=== PATIENT | female | born 1945 | race Caucasian/White ===

== ENCOUNTER 2020-06-20 14:31 | Emergency (ER) | payer MEDICARE ==
[~2020-06-20] VITALS: Ht 170.1 cm; Wt 86.2 kg
[2020-06-20 14:52] VITALS: BP 159/92
--- NOTE | 2020-06-20 15:22 | ED General ---
General Chief Complaint: General Problems/Pain Stated Complaint: SHAKY,DIARRHEA Nursing Triage Note: AMB TO ROOM REPORTS HAS JUST MOVED HERE HAS FELT WEAK FOR 5 DAYS IS OUT OF GABAPENTIN,MIRTAZAPINE PAROXETINE. HAS BEEN EATING TOAST. DOES NOT HAVE A PCP YET. Nursing Sepsis Screen: No Definite Risk Source of Information: Patient Exam Limitations: No Limitations History of Present Illness Date Seen by Provider: Jun 20, 2020 Time Seen by Provider: 15:10 Initial Comments This is a well-appearing 74-year-old female who presents to the ER with complaints of insomnia and tingling in her arms. States she ran out of her gabapentin, mirtazapine, and Paxil a few weeks ago and has never been without these medications. She believes that this is the cause of her symptoms and requests that I help her get her medications. She states she just moved here 5 weeks ago and is working on establishing with a PCP here. She denies fevers, chills, cough, shortness of breath, nausea, vomiting, diarrhea, abdominal pain. Allergies and Home Medications Patient Home Medication List Home Medication List Reviewed: Yes Review of Systems Review of Systems Constitutional: no symptoms reported EENTM: no symptoms reported Respiratory: no symptoms reported Cardiovascular: no symptoms reported Gastrointestinal: diarrhea Genitourinary: no symptoms reported Musculoskeletal: no symptoms reported Skin: no symptoms reported Psychiatric/Neurological: Other (insomnia ) Hematologic/Lymphatic: No Symptoms Reported Immunological/Allergic: no symptoms reported Past Mnfycdc-Uawtgo-Cyxteq Hx Patient Social History Recent Infectious Disease Expo: No Physical Exam Vital Signs Vital Signs - First Documented 06/20/20 14:52 Temp 36.4 Pulse 78 Resp 18 B/P (MAP) 159/92 (114) Pulse Ox 95 Capillary Refill : Less Than 3 Seconds Height, Weight, BMI Height: '" Weight: lbs. oz. kg; 29.00 BMI Method: General Appearance: No Apparent Distress, WD/WN Eyes: Bilateral Eye Normal Inspection, Bilateral Eye PERRL, Bilateral Eye EOMI HEENT: PERRL/EOMI, TMs Normal, Normal ENT Inspection, Pharynx Normal, Moist Mucous Membranes Neck: Full Range of Motion, Normal Inspection Respiratory: Chest Non Tender, Lungs Clear, Normal Breath Sounds, No Accessory Muscle Use Cardiovascular: Regular Rate, Rhythm, No Murmur, Normal Peripheral Pulses Gastrointestinal: Normal Bowel Sounds, Non Tender, Soft Extremity: Normal Capillary Refill, Normal Inspection, Normal Range of Motion Neurologic/Psychiatric: Alert, Oriented x3, No Motor/Sensory Deficits, Normal Mood/Affect Skin: Normal Color, Warm/Dry Progress/Results/Core Measures Suspected Sepsis Recent Fever Within 48 Hours: No Infection Criteria Present: None New/Unexplained Altered Menta: No Sepsis Screen: No Definite Risk SIRS Temperature: Pulse: 78 Respiratory Rate: 18 Blood Pressure 159 /92 Mean: 114 Results/Orders Vital Signs/I&O 06/20/20 14:52 Temp 36.4 Pulse 78 Resp 18 B/P (MAP) 159/92 (114) Pulse Ox 95 Capillary Refill : Less Than 3 Seconds Blood Pressure Mean: 114 Progress Note : Progress Note Pt. examined and in no acute distress. Offered to to basic workup and UA. Patient refused stating she just needs help getting her medications. Called [facility] to check on prescriptions. States patient has Mirtazapine that is pending pepper picker. states that they will go ahead and fill her Gabapentin and they are working with [facility] in [place] to get her Paxil filled. Updated patient. Verbalized gratitude and states she is ready to discharge. Departure Impression Primary Impression: Medication not available Disposition: HOME, SELF-CARE Condition: Stable/Unchanged Departure-Patient Inst. Decision time for Depature: 15:21 Referrals: NO,LOCAL PHYSICIAN (PCP/Family) Primary Care Physician Patient Instructions: NO INSTRUCTIONS GIVEN Add. Discharge Instructions: Plan: 1. Discharge home. 2. plant superintendent your prescriptions from [facility]. 3. Return for any new or concerning symptoms. All discharge instructions reviewed with patient and/or family. Voiced unders tanding. WANDA BARRIOS COMPUTER REPAIRER Jun 20, 2020 15:22
== END 2020-06-20 15:29 | disposition home or self-care (01) ==
LOC: ER 14:34
DX: G47.00 Insomnia, unspecified (principal)
CPT/HCPCS: 99281

== ENCOUNTER → 2020-07-07 | Outpatient (CLI) | payer MEDICARE, MEDICAID | LOC: CARD 12:13 | PROVIDERS: ATTEND Nurse Practitioner Family | DX: I51.7 Cardiomegaly (principal); I35.8 Other nonrheumatic aortic valve disorders; I25.10 Atherosclerotic heart disease of native coronary artery without angina pectoris | CPT/HCPCS: 93005; 93306 ==

== ENCOUNTER 2021-01-25 12:20 | Outpatient (RCR) | payer MEDICARE, MEDICAID ==
[2021-01-14 11:50] VITALS: BP 150/63
--- NOTE | 2021-01-14 12:18 | Diagnostic Imaging Report ---
INDICATION: COUGH LEUKOCYTOSIS. TECHNIQUE: Two-view chest at 11:39 a.m. CORRELATION STUDY: None. FINDINGS: Poststernotomy and coronary bypass changes. Heart size is enlarged. Vasculature is mildly prominent. Mildly prominent interstitial markings. No consolidating infiltrate or effusion. On the lateral projection, there is a nodular density projecting over the superior thoracic spine. This area measures 14 mm. IMPRESSION: 1. Poststernotomy changes. Borderline heart size and vasculature. 2. Question nodule in the posterior upper lung superimposed on the thoracic spine, may simply reflect summation shadows. Pulmonary nodule should be excluded. Either short-term follow-up repeat two-view chest imaging or correlation with prior studies, if available. Alternatively, CT imaging of the chest would be recommended. Dictated by: Dictated on workstation # [id number]
[2021-01-14] MEDS: IRON SUCROSE 200 MG/10 ML (VENOFER) VIAL IV SCH (12:50)
[2021-01-17] MEDS: IRON SUCROSE 200 MG/10 ML (VENOFER) VIAL IV SCH (12:53)
[2021-01-17 12:54] VITALS: BP 152/55
[2021-01-19 12:55] VITALS: BP 150/70
[2021-01-19] MEDS: IRON SUCROSE 200 MG/10 ML (VENOFER) VIAL IV SCH (13:32)
[2021-01-21 12:55] VITALS: BP 155/52
[2021-01-21] MEDS: IRON SUCROSE 200 MG/10 ML (VENOFER) VIAL IV SCH (13:10)
[2021-01-25] MEDS ORDERED: IRON SUCROSE 200 MG/10 ML (VENOFER) VIAL IV SCH (12:31)
[2021-01-25 12:40] VITALS: BP 138/51
== END 2021-04-14 | disposition home or self-care (01) ==
LOC: SDC 12:20
PROVIDERS: ATTEND Nurse Practitioner Family
DX: D50.9 Iron deficiency anemia, unspecified (principal); D72.829 Elevated white blood cell count, unspecified; Z98.890 Other specified postprocedural states
CPT/HCPCS: 71046; 96365

== ENCOUNTER → 2021-05-10 | Outpatient (CLI) | payer MEDICARE, MEDICAID ==
[~2021-05-10] MED LIST: CATHETER FLUSH 10 ML SYR IV PRN; HOLD METFORMIN - RECEIVED CONTRAST 20 ML VIAL IV SCH; IOHEXOL 350 MG/ML 100 ML (OMNIPAQUE 350) VIAL IV ONE; NS 100 ML (IVPB) BAG IV ONE
[2021-05-10 12:25] LABS: CREATININE SERUM 0.98 MG/DL (0.60-1.30)
--- NOTE | 2021-05-10 13:33 | Diagnostic Imaging Report ---
EXAMINATION: CT chest with intravenous contrast, CT abdomen and pelvis without and with intravenous contrast. TECHNIQUE: Pre and post intravenous contrast axial imaging of the abdomen and pelvis and post contrast axial imaging of the chest were performed. All CT scans use one or more of the following dose optimizing techniques: automated exposure control, MA and/or KvP adjustment based on patient size and exam type or iterative reconstruction. HISTORY: Anemia, right upper quadrant pain. COMPARISON: None available. FINDINGS: Thyroid: The thyroid is normal. Mediastinum: Heart size is normal without significant pericardial effusion. Calcifications of the aorta and coronary vessels. Thoracic aorta is normal in caliber. No suspicious lymphadenopathy. Lungs and airways: The lungs are clear without consolidation, pleural effusion, or pneumothorax. There is a 0.6 x 0.4 cm left lower lobe pulmonary nodule. There is scarring within the lingula. Additional smaller 0.4 cm right lower lobe subpleural pulmonary nodule. The airways are normal. Solid organs: There is a mildly nodular contour of the liver. No suspicious hepatic lesion. The gallbladder is surgically absent. There is no biliary ductal dilation. Pancreas is normal. Spleen is normal. Adrenal glands are normal. The kidneys are unremarkable without hydronephrosis. There are subcentimeter left renal cortical hypodense lesions which are too small for accurate characterization. Bowel: The stomach and small bowel are normal without obstruction. The colon is unremarkable. No findings of acute appendicitis. Peritoneum: There is no intraperitoneal free fluid or free air. No suspicious lymphadenopathy. Vasculature: Calcification of the aorta without aneurysm. Musculoskeletal: Degenerative changes of the spine without suspicious osseous lesion or compression fracture. There are surgical changes from median sternotomy and CABG. There is mild skin thickening seen along the anterior abdominal soft tissues. Pelvis: The uterus is surgically absent. No adnexal mass. The urinary bladder is normal. IMPRESSION: 1. No acute abnormality in the abdomen or pelvis. 2. Nodular morphology of the liver which can be seen with cirrhosis in the appropriate clinical setting. 3. Pulmonary nodules measuring up to 0.5 cm average in the left lower lobe. Consider follow-up CT of the chest in 6 to 12 months. Dictated by: Dictated on workstation # [id number]
== END ==
LOC: RAD 12:45
PROVIDERS: ATTEND Nurse Practitioner Family
DX: D50.9 Iron deficiency anemia, unspecified (principal); R91.8 Other nonspecific abnormal finding of lung field; R10.11 Right upper quadrant pain; Z87.891 Personal history of nicotine dependence
CPT/HCPCS: 36415; 71260; 74178; 82565; 84520

== ENCOUNTER 2021-09-09 12:44 | Inpatient (IN) | payer MEDICARE, MEDICAID ==
[~2021-09-09] VITALS: Ht 170.2 cm; Wt 90.8 kg
[2021-09-09 13:06] LABS: BASOPHILS # (AUTO) 0.1 10^3/uL (0.0-0.1); BASOPHILS % (AUTO) 1 % (0-10); EOSINOPHILS # (AUTO) 0.2 10^3/uL (0.0-0.3); EOSINOPHILS % (AUTO) 2 % (0-10); HEMATOCRIT 34 % (35-52); HEMOGLOBIN 11.4 g/dL (11.5-16.0); LYMPHOCYTES # (AUTO) 2.2 10^3/uL (1.0-4.0); LYMPHOCYTES % (AUTO) 20 % (12-44); MEAN CORPUSCULAR HEMOGLOBIN 31 pg (25-34); MEAN CORPUSCULAR HGB CONC 33 g/dL (32-36); MEAN CORPUSCULAR VOLUME 93 fL (80-99); MONOCYTES # (AUTO) 1.1 10^3/uL (0.0-1.0); MONOCYTES % (AUTO) 10 % (0-12); NEUTROPHILS # (AUTO) 7.2 10^3/uL (1.8-7.8); NEUTROPHILS % (AUTO) 67 % (42-75); PLATELET COUNT 309 10^3/uL (130-400); WHITE BLOOD COUNT 10.8 10^3/uL (4.3-11.0)
[2021-09-09 13:18] LABS: ALBUMIN 3.5 GM/DL (3.2-4.5); POTASSIUM 3.6 MMOL/L (3.6-5.0)
[2021-09-09 13:19] LABS: CALCIUM 9.5 MG/DL (8.5-10.1)
[2021-09-09 13:20] LABS: TOTAL PROTEIN 7.2 GM/DL (6.4-8.2)
--- NOTE | 2021-09-09 13:20 | ED GI ---
General Chief Complaint: Abdominal/GI Problems Stated Complaint: DIARRHEA Nursing Triage Note: PT AMB TO RM 9 WITH COMPLAINT OF DIARRHEA X1 WEEK. STATES HAS HAD INTERMITTENT BRIGHT RED BLOOD. WENT TO PCP AND PRESCRIBED LOMOTIL. INSTRUCTED TO COME TO ER BY PCP. Source of Information: Patient Exam Limitations: No Limitations History of Present Illness Date Seen by Provider: September 09, 2021 Time Seen by Provider: 12:52 Initial Comments Patient to the ER by private conveyance from home with chief complaint of diarrhea for 7 days with some small amounts of bright red blood in it last day or so. She is having some occasional nausea but no vomiting. No fevers or chills. She says she had a colonoscopy so many years ago she does not member a thing about it. She does not have a history of diverticulitis. No known sick c ontacts, recent travel outside the [facility], drinking from unsafe water sources or camping. She has had her appendix out, gallbladder out and hysterectomy. Allergies and Home Medications Allergies Coded Allergies: No Known Drug Allergies (Unverified , 01/14/21) Patient Home Medication List Home Medication List Reviewed: Yes Review of Systems Review of Systems Constitutional: No chills, No diaphoresis, No fever; weakness EENTM: No Blurred Vision, No Double Vision Respiratory: Denies Cough, Denies Orthopnea, Denies Shortness of Air Cardiovascular: Denies Chest Pain, Denies Lightheadedness Gastrointestinal: Denies Abdomen Distended, Denies Abdominal Pain, Denies Constipated; Diarrhea; Denies Nausea; Poor Appetite; Denies Poor Fluid Intake, Denies Vomiting Genitourinary: Denies Burning, Denies Discharge Musculoskeletal: No back pain, No joint pain All Other Systems Reviewed Negative Unless Noted: Yes Past Naujvut-Zbpoao-Wlejxk Hx Patient Social History Tobacco Use?: Yes Tobacco type used: Cigarettes Smoking Status: Current Everyday Smoker Use of E-Cig and/or Vaping dev: No Substance use?: No Alcohol Use?: Yes Alcohol Frequency: Once in a while Pt feels they are or have been: No Past Medical History Surgeries: Yes Appendectomy, CABG, Gallbladder, Hysterectomy Cardiac: Yes Hypertension Genitourinary: No Musculoskeletal: Yes Chronic Back Pain Endocrine: Yes Diabetes, Insulin dep Psychosocial: Yes Depression Physical Exam Vital Signs Vital Signs - First Documented 09/09/21 12:53 Temp 36.0 Pulse 104 Resp 20 B/P (MAP) 160/75 (103) Pulse Ox 93 O2 Delivery Room Air Capillary Refill : Less Than 3 Seconds Height/Weight/BMI Height: '" Weight: lbs. oz. kg; 30.00 BMI Method: General Appearance: WD/WN, mild distress HEENT: PERRL/EOMI, pharynx normal Neck: full range of motion, supple, normal inspection Respiratory: lungs clear, normal breath sounds, no respiratory distress, no accessory muscle use Cardiovascular: normal peripheral pulses, regular rate, rhythm, tachycardia (104) Peripheral Pulses: 2+ Radial Pulses (R), 2+ Radial Pulses (L) Gastrointestinal: normal bowel sounds, non tender, soft Neurologic/Psychiatric: alert, normal mood/affect, oriented x 3 Skin: normal color, warm/dry Progress/Results/Core Measures Results/Orders Lab Results Laboratory Tests Test 09/09/21 12:59 09/09/21 16:49 Range/Units White Blood Count 10.8 4.3-11.0 10^3/uL Red Blood Count 3.71 L 3.80-5.11 10^6/uL Hemoglobin 11.4 L 11.5-16.0 g/dL Hematocrit 34 L 35-52 % Mean Corpuscular Volume 93 80-99 fL Mean Corpuscular Hemoglobin 31 25-34 pg Mean Corpuscular Hemoglobin Concent 33 32-36 g/dL Red Cell Distribution Width 12.8 10.0-14.5 % Platelet Count 309 130-400 10^3/uL Mean Platelet Volume 10.0 9.0-12.2 fL Immature Granulocyte % (Auto) 1 % Neutrophils (%) (Auto) 67 42-75 % Lymphocytes (%) (Auto) 20 12-44 % Monocytes (%) (Auto) 10 0-12 % Eosinophils (%) (Auto) 2 0-10 % Basophils (%) (Auto) 1 0-10 % Neutrophils # (Auto) 7.2 1.8-7.8 10^3/uL Lymphocytes # (Auto) 2.2 1.0-4.0 10^3/uL Monocytes # (Auto) 1.1 H 0.0-1.0 10^3/uL Eosinophils # (Auto) 0.2 0.0-0.3 10^3/uL Basophils # (Auto) 0.1 0.0-0.1 10^3/uL Immature Granulocyte # (Auto) 0.1 0.0-0.1 10^3/uL Sodium Level 138 135-145 MMOL/L Potassium Level 3.6 3.6-5.0 MMOL/L Chloride Level 104 98-107 MMOL/L Carbon Dioxide Level 21 21-32 MMOL/L Anion Gap 13 5-14 MMOL/L Blood Urea Nitrogen 10 7-18 MG/DL Creatinine 1.05 0.60-1.30 MG/DL Estimat Glomerular Filtration Rate 56 BUN/Creatinine Ratio 10 Glucose Level 153 H 70-105 MG/DL Calcium Level 9.5 8.5-10.1 MG/DL Corrected Calcium 9.9 8.5-10.1 MG/DL Total Bilirubin 0.3 0.1-1.0 MG/DL Aspartate Amino Transf (AST/SGOT) 34 5-34 U/L Alanine Aminotransferase (ALT/SGPT) 40 0-55 U/L Alkaline Phosphatase 133 40-136 U/L C-Reactive Protein High Sensitivity 4.81 H 0.00-0.50 MG/DL Total Protein 7.2 6.4-8.2 GM/DL Albumin 3.5 3.2-4.5 GM/DL Lipase 373 H 8-78 U/L Urine Color YELLOW Urine Clarity SL CLOUDY Urine pH 5.0 5-9 Urine Specific [place] 1.025 H 1.016-1.022 Urine Protein 2+ H NEGATIVE Urine Glucose (UA) 2+ H NEGATIVE Urine Ketones NEGATIVE NEGATIVE Urine Nitrite POSITIVE H NEGATIVE Urine Bilirubin NEGATIVE NEGATIVE Urine Urobilinogen 0.2 < = 1.0 MG/DL Urine Leukocyte Esterase NEGATIVE NEGATIVE Urine RBC (Auto) NEGATIVE NEGATIVE Urine RBC NONE /HPF Urine WBC 10-25 H /HPF Urine Squamous Epithelial Cells RARE /HPF Urine Crystals NONE /LPF Urine Bacteria LARGE H /HPF Urine Casts NONE /LPF Urine Mucus NEGATIVE /LPF Urine Culture Indicated YES My Orders Orders - KALE BROWN Ua Culture If Indicated (09/09/21 12:50) Cbc With Automated Diff (09/09/21 12:50) Comprehensive Metabolic Panel (09/09/21 12:50) Hs C Reactive Protein (09/09/21 12:50) Ct Abdomen/Pelvis Wo (09/09/21 13:38) Ed Iv/Invasive Line Start (09/09/21 13:38) Lactated Ringers (Lr 1000 Ml Iv Solution (09/09/21 13:45) Ondansetron Injection (Zofran Injectio (09/09/21 13:45) Hydrocodone/Apap 5/325 Tablet (Lortab 5 (09/09/21 13:45) Lipase (09/09/21 13:38) Ed Iv/Invasive Line Start (09/09/21 16:36) Ns Iv 1000 Ml (Sodium Chloride 0.9%) (09/09/21 16:45) Urine Culture (09/09/21 16:49) Medications Given in ED Current Medications Medications Dose Ordered Sig/Willie Route Start Time Stop Time Status Last Admin Dose Admin Acetaminophen/ Hydrocodone Bitart 1 ea ONCE ONCE PO 09/09/21 13:45 09/09/21 13:46 DC 09/09/21 14:02 1 EA Lactated Ringer's 1,000 ml @ 0 mls/hr Q0M ONCE IV 09/09/21 13:45 09/09/21 13:46 DC 09/09/21 14:02 0 MLS/HR Ondansetron HCl 8 mg ONCE ONCE IVP 09/09/21 13:45 09/09/21 13:46 DC 09/09/21 14:02 8 MG Vital Signs/I&O 09/09/21 12:53 Temp 36.0 Pulse 104 Resp 20 B/P (MAP) 160/75 (103) Pulse Ox 93 O2 Delivery Room Air Blood Pressure Mean: 103 Progress Progress Note : Time: 15:10 Progress Note Labs, CT looking for diverticulitis, hydrocodone for pain and diarrhea. If we collect a sample we will send it down to the lab. Diagnostic Imaging Diagonstic Imaging: CT Plain Films/CT/US/NM/MRI: abdomen, pelvis Comments NAME: SOULEYMANE ASTUDILLO Snady [employer] REC#: [id number] PT STATUS: REG ER : 1945 PHYSICIAN: KALE BROWN MD ADMIT DATE: 09/09/21/ER Draft Date of Exam:09/09/21 CT ABDOMEN/PELVIS WO PROCEDURE: CT abdomen and pelvis without contrast. TECHNIQUE: Multiple contiguous axial images were obtained through the abdomen and pelvis without the use of intravenous contrast. Auto Exposure Controls were utilized during the CT exam to meet ALARA standards for radiation dose reduction. INDICATION: Abdominal pain, bloody diarrhea. COMPARISON: Exam compared with CT abdomen and pelvis dated 05/10/2021. FINDINGS: There is moderate pancolonic wall thickening with pericolonic stranding and edema consistent with nonspecific generalized colitis. There are multiple diverticula present, but the pattern is inconsistent with merely acute diverticulitis. There is some air within the urinary bladder's lumen; correlate for any recent instrumentation. No focal bladder wall thickening or irregularity, however. There is no pneumatosis. There is no free gas, and there is no abscess or drainable fluid collection. There is no resultant bowel obstruction. The small bowel is nonfocal, unobstructed, and nonacute. There is no abnormal fecal loading. There are aortoiliac and mesenteric atherosclerotic vascular calcifications as well as punctate nonobstructing right greater than left renal calculi of 1-2 mm. There is fatty infiltration of the liver with no biliary ductal dilatation. Spleen, adrenals, and pancreas are unremarkable. IMPRESSION: 1. Pancolitis with scattered diverticula. No abscess, obstruction, perforation, or pneumatosis. 2. There is air in the bladder's lumen which could be from fistulization or recent bladder instrumentation; correlate clinically. 3. Nonobstructing nephrolithiasis. Dictated on workstation # [id number] Dict: 09/09/21 1452 Trans: 09/09/21 1505 [id number] Interpreted by: NAYANA GUERRERO Electronically signed by: Reviewed: Reviewed by Me Departure Communication (Admissions) Time/Spoke to Admitting Phy: 17:30 Discussed the case with Dr. Roberts and he agrees with admission to the floor with Lizabeth Diamond. He will put in queued orders Impression Primary Impression: Enterocolitis Additional Impressions: UTI (urinary tract infection) Qualified Codes: N30.00 - Acute cystitis without hematuria Dehydration Disposition: ADMITTED INPATIENT Condition: Stable Admissions Decision to Admit Reason: Admit from ER (General) Decision to Admit/Date: September 09, 2021 Time/Decision to Admit Time: 17:30 Departure-Patient Inst. Referrals: ROCKY FRENCH MD (PCP) Primary Care Physician JADE HAGEN APRN (Family) Primary Care Physician KALE BROWN September 09, 2021 13:20
[2021-09-09 13:22] LABS: BILIRUBIN,TOTAL 0.3 MG/DL (0.1-1.0)
[2021-09-09 13:24] LABS: CREATININE SERUM 1.05 MG/DL (0.60-1.30)
[2021-09-09] MEDS ORDERED: HYDROcodone/APAP 5 MG/325 MG (LORTAB) TAB PO ONE (13:45)
[2021-09-09] MEDS ORDERED: LACTATED RINGERS 1,000 ML IV ONE (13:45)
[2021-09-09] MEDS ORDERED: ONDANSETRON 4 MG/2 ML (SDV) Z0FRAN IVP ONE (13:45)
--- NOTE | 2021-09-09 15:06 | Diagnostic Imaging Report ---
PROCEDURE: CT abdomen and pelvis without contrast. TECHNIQUE: Multiple contiguous axial images were obtained through the abdomen and pelvis without the use of intravenous contrast. Auto Exposure Controls were utilized during the CT exam to meet ALARA standards for radiation dose reduction. INDICATION: Abdominal pain, bloody diarrhea. COMPARISON: Exam compared with CT abdomen and pelvis dated 05/10/2021. FINDINGS: There is moderate pancolonic wall thickening with pericolonic stranding and edema consistent with nonspecific generalized colitis. There are multiple diverticula present, but the pattern is inconsistent with merely acute diverticulitis. There is some air within the urinary bladder's lumen; correlate for any recent instrumentation. No focal bladder wall thickening or irregularity, however. There is no pneumatosis. There is no free gas, and there is no abscess or drainable fluid collection. There is no resultant bowel obstruction. The small bowel is nonfocal, unobstructed, and nonacute. There is no abnormal fecal loading. There are aortoiliac and mesenteric atherosclerotic vascular calcifications as well as punctate nonobstructing right greater than left renal calculi of 1-2 mm. There is fatty infiltration of the liver with no biliary ductal dilatation. Spleen, adrenals, and pancreas are unremarkable. IMPRESSION: 1. Pancolitis with scattered diverticula. No abscess, obstruction, perforation, or pneumatosis. 2. There is air in the bladder's lumen which could be from fistulization or recent bladder instrumentation; correlate clinically. 3. Nonobstructing nephrolithiasis. Dictated by: Dictated on workstation # [id number]
[2021-09-09] MEDS ORDERED: NS IV 1000 ML 1,000 ML IV SCH (16:45)
[2021-09-09 16:55] LABS: BILIRUBIN,URINE NEGATIVE (NEGATIVE); CLARITY,URINE SL CLOUDY; COLOR,URINE YELLOW; GLUCOSE, URINE (UA) 2+ (NEGATIVE); KETONES,URINE NEGATIVE (NEGATIVE); LEUKOCYTE ESTERASE ,URINE NEGATIVE (NEGATIVE); NITRITE,URINE POSITIVE (NEGATIVE); PROTEIN,URINE 2+ (NEGATIVE)
[2021-09-09 17:03] LABS: BACTERIA,URINE LARGE /HPF; SQUAMOUS EPITHELIAL CELL,UR RARE /HPF
[2021-09-09] MEDS ORDERED: morphine INJ 10 MG/ML 1ML (SYR OR VIAL) IVP STA (17:35)
[2021-09-09] MEDS ORDERED: metroNIDAZOLE 500MG/100ML IVPB 100 ML IV ONE (17:45)
[2021-09-09] MEDS ORDERED: cefTRIAXone 1 GM PRE-MIX 50 ML IV ONE (17:45)
[2021-09-09] MEDS ORDERED: MELATONIN 3 MG TABLET PO PRN (18:00)
[2021-09-09] MEDS ORDERED: polyethylene glycoL POWDER 17 GM (MIRALAX) PACK PO PRN (18:00)
[2021-09-09] MEDS ORDERED: ACETAMINOPHEN 325 MG TABLET PO PRN (18:00)
[2021-09-09] MEDS ORDERED: ANTACID SUSP 30 ML UDC (MYLANTA) PO PRN (18:00)
[2021-09-09] MEDS ORDERED: ONDANSETRON 4 MG (ZOFRAN) ORAL DISSOLVE TAB PO PRN (18:00)
[2021-09-09] MEDS ORDERED: ONDANSETRON 4 MG/2 ML (SDV) Z0FRAN IV PRN (18:00)
[2021-09-09 19:40] VITALS: BP 99/54
[2021-09-09] MEDS: inSUlin ASPART (NovoLOG) 1 UNIT/0.01 ML (CHARGE PER UNIT) SC SCH (20:19)
[2021-09-09] MEDS: ENOXAPARIN 40 MG/0.4 ML (LOVENOX) SYR SC SCH (20:24)
[2021-09-09] MEDS: NS IV 1000 ML 1,000 ML IV SCH (20:31)
[2021-09-09] MEDS ORDERED: metroNIDAZOLE 500MG/100ML IVPB 100 ML IV SCH (22:00)
[2021-09-09] MEDS: MIRTAZAPINE 15 MG (REMERON) TAB PO SCH (22:09)
[2021-09-09] MEDS: GABAPENTIN 600 MG (NEURONTIN) TAB PO SCH (22:09)
[2021-09-10] VITALS: BP 112/56
[2021-09-10] MEDS: metroNIDAZOLE 500MG/100ML IVPB 100 ML IV SCH ×3 (02:46→17:33)
[2021-09-10] MEDS ORDERED: GABA300C PO (03:41)
[2021-09-10] MEDS ORDERED: MELO15TA39 PO (03:41)
[2021-09-10] MEDS ORDERED: ATOR20TA66 PO (03:41)
[2021-09-10] MEDS ORDERED: ASPI-999 PO (03:41)
[2021-09-10] MEDS ORDERED: FURO40TA4 PO (03:41)
[2021-09-10] MEDS ORDERED: MTP25TSR PO (03:41)
[2021-09-10] MEDS ORDERED: ISOS30TA82 PO (03:41)
[2021-09-10] MEDS ORDERED: NITR0.4T42 SL (03:41)
[2021-09-10] MEDS ORDERED: METF-399 PO (03:41)
[2021-09-10] MEDS ORDERED: LISI20TA26 PO (03:41)
[2021-09-10] MEDS ORDERED: PANT40TA52 PO (03:41)
[2021-09-10] MEDS ORDERED: AMLO-250 PO (03:41)
[2021-09-10] MEDS ORDERED: MIRT45TA75 PO (03:41)
[2021-09-10] MEDS ORDERED: INSU100I29 SC (03:41)
[2021-09-10 04:00] VITALS: BP 128/60
[2021-09-10] MEDS: inSUlin ASPART (NovoLOG) 1 UNIT/0.01 ML (CHARGE PER UNIT) SC SCH ×4 (06:29→21:28)
[2021-09-10 06:59] LABS: POTASSIUM 3.5 MMOL/L (3.6-5.0)
[2021-09-10 07:00] LABS: CALCIUM 8.7 MG/DL (8.5-10.1)
[2021-09-10 07:19] LABS: CREATININE SERUM 0.97 MG/DL (0.60-1.30)
[2021-09-10 07:22] LABS: MAGNESIUM 1.7 MG/DL (1.6-2.4)
[2021-09-10] MEDS: KCL 20 MEQ TAB (K-DUR) PO SCH (07:25)
[2021-09-10] MEDS: POTASSIUM CL 10MEQ/50ML IVPB 50 ML IV SCH (07:25)
[2021-09-10] MEDS: MAGNESIUM 1 GM/100 ML IVPB 100 ML IV SCH ×3 (07:25→09:35)
[2021-09-10] MEDS: NS IV 1000 ML 1,000 ML IV SCH ×3 (07:28→19:26)
[2021-09-10 08:01] VITALS: BP 120/56
[2021-09-10] MEDS ORDERED: KCL 20 MEQ TAB (K-DUR) PO ONE (09:00)
[2021-09-10] MEDS: lisINopril 20 MG (PRINIVIL) TABLET PO SCH (09:25)
[2021-09-10] MEDS: amLODIPine 5 MG (NORVASC) TAB PO SCH (09:25)
[2021-09-10] MEDS: ISOSORBIDE MONONITRATE 30 MG (IMDUR) TAB PO SCH (09:25)
[2021-09-10] MEDS: DULoxetine 30 MG (CYMBALTA) CAP PO SCH (09:25)
[2021-09-10] MEDS: GABAPENTIN 600 MG (NEURONTIN) TAB PO SCH ×2 (09:25→21:31)
[2021-09-10] MEDS: cefTRIAXone 1 GM PRE-MIX 50 ML IV SCH (09:26)
[2021-09-10 11:27] VITALS: BP 126/61
[2021-09-10 15:45] VITALS: BP 131/61
[2021-09-10] MEDS: ENOXAPARIN 40 MG/0.4 ML (LOVENOX) SYR SC SCH (17:33)
--- NOTE | 2021-09-10 18:27 | History & Physical-Hospitalist ---
History of Present Illness HPI/Chief Complaint Kennedi Schneider is a 75 year old female with PMH HTN, T2DM, HLD, CAD, GERD, who presented with diarrhea. She has had diarrhea for the past week. She has had some blood in her stools. She said her stools are not completely watery and have some form. She has some abdominal pain. She denies nausea and vomiting. She denies fevers and chills. She has had decreased urine output. She denies dysuria. She denies chest pain and shortness of breath. She has not been on any antibiotics recently. She has never had symptoms like this before. Source: patient Exam Limitations: no limitations Date Seen 09/10/21 Time Seen by a Provider: 10:35 Attending Physician Henok Curtis MD PCP Luciano Khan MD Referring Physician Date of Admission September 09, 2021 at 17:38 Home Medications & Allergies Home Medications Reviewed patient Home Medication Reconciliation performed by pharmacy medication reconciliations stress test technician and/or nursing. Patients Allergies have been reviewed. Allergies Allergies Coded Allergies No Known Drug Allergies (Unverified01/14/21) Past Rjvmfun-Pzeiqd-Gllzwk Hx Patient Social History Tobacco Use?: Yes Tobacco type used: Cigarettes Smoking Status: Current Everyday Smoker Use of E-Cig and/or Vaping dev: No Substance use?: No Alcohol Use?: No Alcohol Frequency: Once in a while Pt feels they are or have been: No Immunizations Up To Date Tetanus Booster (TDap): Unknown Current Status Advance Directives: No Communicates: Verbally Primary Language: Congolese Preferred Spoken Language: Congolese Sensory deficits: Vision impairment Implanted or Applied Medical D: None Past Medical History Surgeries: Appendectomy, CABG, Gallbladder, Hysterectomy Hypertension Chronic Back Pain Diabetes, Insulin dep Depression Family Medical History No Pertinent Family Hx Review of Systems Constitutional: malaise, weakness EENTM: no symptoms reported Respiratory: no symptoms reported Cardiovascular: no symptoms reported Gastrointestinal: abdominal pain, diarrhea Genitourinary: decreased output Musculoskeletal: no symptoms reported Skin: no symptoms reported Psychiatric/Neurological: No Symptoms Reported Physical Exam Physical Exam Vital Signs Vital Signs - First Documented 09/09/21 12:53 Temp 36.0 Pulse 104 Resp 20 B/P (MAP) 160/75 (103) Pulse Ox 93 O2 Delivery Room Air Capillary Refill : Less Than 3 Seconds Height, Weight, BMI Height: '" Weight: lbs. oz. kg; 31.34 BMI Method: General Appearance: No Apparent Distress, Obese HEENT: PERRL/EOMI, Pharynx Normal Neck: Normal Inspection, Supple Respiratory: Lungs Clear, Normal Breath Sounds, No Respiratory Distress Cardiovascular: Regular Rate, Rhythm, No Edema, No Murmur Gastrointestinal: Normal Bowel Sounds, Non Tender, Soft Extremity: Normal Inspection, Non Tender, No Pedal Edema Neurologic/Psychiatric: Alert, Oriented x3, No Motor/Sensory Deficits, Normal Mood/Affect Skin: Normal Color, Warm/Dry Results Results/Procedures Labs Laboratory Tests 09/09/21 12:59 09/10/21 06:26 Patient resulted labs reviewed. Imaging: Reviewed Imaging Report Assessment/Plan Admission Diagnosis Colitis Admission Status: Inpatient Order (span 2 midnights) Reason for Inpatient Admission: Colitis UTI IV antibiotics and fluids Assessment and Plan Colitis UTI CT abdomen with pancolitis, possible bladder fistula Consult surgery Rocephin and Flagyl C diff testing ordered IV fluids T2DM Decreased dose Levemir Sliding scale insulin HTN HLD CAD GERD Continue home meds DVT prophylaxis: Lovenox Diagnosis/Problems Diagnosis/Problems (1) Colitis Status: Acute (2) UTI (urinary tract infection) Status: Acute Qualifiers: Urinary tract infection type: acute cystitis Hematuria presence: without hematuria Qualified Codes: N30.00 - Acute cystitis without hematuria (3) Dehydration Status: Acute (4) HTN (hypertension) Status: Chronic (5) T2DM (type 2 diabetes mellitus) Status: Chronic Qualifiers: Diabetes mellitus terminal gauger insulin use: with terminal gauger use Diabetes mellitus complication status: with neurologic complications Diabetes mellitus complication detail: with polyneuropathy Qualified Codes: E11.42 - Type 2 diabetes mellitus with diabetic polyneuropathy; 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
[2021-09-10 19:24] VITALS: BP 134/66
[2021-09-10] MEDS: MIRTAZAPINE 15 MG (REMERON) TAB PO SCH (21:32)
--- NOTE | 2021-09-10 22:05 | Consultation - Surgery ---
History of Present Illness History of Present Illness Patient Consulted On(david/time) 09/10/21 21:59 Date Seen by Provider: September 10, 2021 Time Seen by Provider: 21:59 History of Present Illness Consult requested by Dr. Roberts for possible bladder fistula/colitis Patient is a 75-year-old female who has been having diarrhea for 1 week. She is having bowel movements about every 20 minutes she states. Have a little bit of blood in stools. Nothing was seem to make it better. Nothing really seem to make it worse that she knew of. Discontinued. Patient would have diffuse abdominal pain. She states it is sharp pain that was all over the abdomen. It is constant. The only thing that really made it better is when she finally has some pain medication. Patient has not had any recent antibiotic use. She has never had any significant urinary tract infections. Patient is not having any dysuria. Patient currently is feeling quite better. Her pain is under control. Last colonoscopy approximately 14 years ago. She denies any nausea vomiting fever sweats chills shortness of breath or chest pain at this time. She had a CT scan that demonstrated pancolitis and there was a little bit of air within the bladder concerning for possible fistula. Allergies and Home Medications Allergies Coded Allergies: No Known Drug Allergies (Unverified , 01/14/21) Patient Home Medication List Home Medication List Reviewed: Yes Amlodipine Besylate (Amlodipine Besylate) 5 Mg Tablet, 5 MG PO DAILY, (Reported) Entered as Reported by: YOUSIF BAUER on 09/10/21340 Last Action: New Order Aspirin (Aspirin) 81 Mg Tab.chew, 81 MG PO DAILY, (Reported) Entered as Reported by: YOUSIF BAUER on 09/10/21340 Last Action: New Order Atorvastatin Calcium (Atorvastatin Calcium) 20 Mg Tablet, 20 MG PO DAILY, (Reported) Entered as Reported by: YOUSIF BAUER on 09/10/21340 Last Action: New Order Furosemide (Furosemide) 40 Mg Tablet, 40 MG PO DAILY PRN for swelling, (Reporte d) Entered as Reported by: YOUSIF BAUER on 09/10/21340 Last Action: New Order Gabapentin (Neurontin) 300 Mg Capsule, 900 MG PO Q12H, (Reported) Entered as Reported by: YOUSIF BAUER on 09/10/21340 Last Action: New Order Insulin Detemir (Levemir Flextouch) 100 Unit/Ml (3 Ml) Insuln.pen, 80 UNITS SC HS, (Reported) Entered as Reported by: YOUSIF BAUER on 09/10/21340 Last Action: New Order Isosorbide Mononitrate (Isosorbide Mononitrate ER) 30 Mg Tab.er.24h, 30 MG PO DAILY, (Reported) Entered as Reported by: YOUSIF BAUER on 09/10/21340 Last Action: New Order Lisinopril (Lisinopril) 20 Mg Tablet, 20 MG PO DAILY, (Reported) Entered as Reported by: YOUSIF BAUER on 09/10/21340 Last Action: New Order Meloxicam (Meloxicam) 15 Mg Tablet, 15 MG PO DAILY, (Reported) Entered as Reported by: YOUSIF BAUER on 09/10/21340 Last Action: New Order Metformin HCl (Metformin HCl) 1,000 Mg Tablet, 1,000 MG PO BID, (Reported) Entered as Reported by: YOUSIF BAUER on 09/10/21340 Last Action: New Order Metoprolol Succinate (Metoprolol Succinate) 25 Mg Tab.er.24h, 25 MG PO DAILY, (Reported) Entered as Reported by: YOUSIF BAUER on 09/10/21340 Last Action: New Order Mirtazapine (Mirtazapine) 45 Mg Tablet, 45 MG PO DAILY, (Reported) Entered as Reported by: YOUSIF BAUER on 09/10/21340 Last Action: New Order Nitroglycerin (Nitroglycerin) 0.4 Mg Tab.subl, 1 TAB SL for CHEST PAIN (ANGINA), (Reported) Entered as Reported by: YOUSIF BAUER on 09/10/21340 Last Action: New Order Pantoprazole Sodium (Pantoprazole Sodium) 40 Mg Tablet.dr, 40 MG PO DAILY, (Reported) Entered as Reported by: YOUSIF BAUER on 09/10/21340 Last Action: New Order Past Ighydjr-Ycpwuj-Kugpuz Hx Patient Social History Smoking Status: Current Everyday Smoker Alcohol Use?: No Have you traveled recently?: No Surgeries History of Surgeries: Yes Surgeries: Appendectomy, CABG, Gallbladder, Hysterectomy Cardiovascular History of Cardiac Disorders: Yes Cardiac Disorders: Hypertension Genitourinary History of Genitourinary Disor: No Musculoskeletal History of Musculoskeletal Dis: Yes Musculoskeletal Disorders: Chronic Back Pain Endocrine History of Endocrine Disorders: Yes Endocrine Disorders: Diabetes, Insulin dep Psychosocial History of Psychiatric Problem: Yes Behavioral Health Disorders: Depression Reviewed Nursing Assessment Reviewed/Agree w Nursing PMH: Yes Family Medical History Significant Family History: No Pertinent Family Hx Review of Systems-General Constitutional: No chills, No diaphoresis EENTM: No blurred vision, No double vision Respiratory: No cough, No dyspnea on exertion Cardiovascular: No chest pain, No palpitations Gastrointestinal: abdominal pain, diarrhea; No nausea, No vomiting Genitourinary: decreased output; No discharge Musculoskeletal: No back pain, No gout, No joint pain Skin: No change in color, No change in hair/nails Psychiatric/Neurological: Denies Anxiety, Denies Depressed, Denies Emotional Problems All Other Systems Reviewed Negative Unless Noted: Yes (Negative excepted noted.) Physical Exam-General Problems Physical Exam Vital Signs Vital Signs - First Documented 09/09/21 12:53 Temp 36.0 Pulse 104 Resp 20 B/P (MAP) 160/75 (103) Pulse Ox 93 O2 Delivery Room Air Capillary Refill : Less Than 3 Seconds General Appearance: no apparent distress HEENT: PERRL/EOMI, normal ENT inspection Neck: non-tender, full range of motion Respiratory: chest non-tender, no respiratory distress, no accessory muscle use Cardiovascular: regular rate, rhythm, no JVD Gastrointestinal: soft, tenderness (diffusely but minimal) Rectal: deferred Back: normal inspection, no CVA tenderness Extremities: non-tender, normal inspection Neurologic/Psychiatric: alert, normal mood/affect, oriented x 3 Skin: normal color, warm/dry Lymphatic: no adenopathy Data Review Labs Laboratory Tests 09/10/21 06:26: Sodium Level 139, Potassium Level 3.5L, Chloride Level 106, Carbon Dioxide Level 23, Anion Gap 10, Blood Urea Nitrogen 8, Creatinine 0.97, Estimat Glomerular Filtration Rate 62, BUN/Creatinine Ratio 8, Glucose Level 111H, Calcium Level 8.7, Magnesium Level 1.7 09/10/21 11:31: Glucometer 147H 09/10/21 15:11: Glucometer 188H 09/10/21 20:44: Glucometer 146H Microbiology 09/09/21 Urine Culture - Preliminary, Resulted Gram Negative Bacillus 1 Assessment/Plan Assessment/Plan Assessment/Plan pancolitis UTI possible colovesicular fistula diarrhea with some blood in stool diffuse abdominal pain abdominal pain improved and feeling much better there is some air in the bladder could be secondary to fistula patient denies any recent catheters patient would keep on clears and if pain resolved then slowly advance continue iv abx would recommend colonoscopy outpatient once pancolitis resolved. would also recommend possible cystoscopy would consider ct scan with rectal contrast once pancolitis resolved. ANNALEE OROPEZA DO September 10, 2021 22:04
[2021-09-11] VITALS (9 sets, daily range): BP systolic 145–197; BP diastolic 65–80
[2021-09-11] MEDS: metroNIDAZOLE 500MG/100ML IVPB 100 ML IV SCH ×3 (02:11→17:34)
[2021-09-11] MEDS: amLODIPine 5 MG (NORVASC) TAB PO SCH (05:34)
[2021-09-11 06:04] LABS: BASOPHILS # (AUTO) 0.1 10^3/uL (0.0-0.1); BASOPHILS % (AUTO) 1 % (0-10); EOSINOPHILS # (AUTO) 0.2 10^3/uL (0.0-0.3); EOSINOPHILS % (AUTO) 3 % (0-10); HEMATOCRIT 33 % (35-52); HEMOGLOBIN 10.4 g/dL (11.5-16.0); LYMPHOCYTES # (AUTO) 1.5 10^3/uL (1.0-4.0); LYMPHOCYTES % (AUTO) 25 % (12-44); MEAN CORPUSCULAR HEMOGLOBIN 31 pg (25-34); MEAN CORPUSCULAR HGB CONC 32 g/dL (32-36); MEAN CORPUSCULAR VOLUME 96 fL (80-99); MEAN PLATELET VOLUME 10.3 fL (9.0-12.2); MONOCYTES # (AUTO) 0.7 10^3/uL (0.0-1.0); MONOCYTES % (AUTO) 11 % (0-12); NEUTROPHILS # (AUTO) 3.7 10^3/uL (1.8-7.8); NEUTROPHILS % (AUTO) 60 % (42-75); PLATELET COUNT 234 10^3/uL (130-400); WHITE BLOOD COUNT 6.3 10^3/uL (4.3-11.0)
[2021-09-11 06:09] LABS: POTASSIUM 3.7 MMOL/L (3.6-5.0)
[2021-09-11 06:10] LABS: CALCIUM 8.8 MG/DL (8.5-10.1)
[2021-09-11] MEDS: POTASSIUM CL 10MEQ/50ML IVPB 50 ML IV SCH (06:12)
[2021-09-11] MEDS: KCL 20 MEQ TAB (K-DUR) PO SCH (06:13)
[2021-09-11 06:14] LABS: CREATININE SERUM 0.95 MG/DL (0.60-1.30)
[2021-09-11 06:17] LABS: MAGNESIUM 1.7 MG/DL (1.6-2.4)
[2021-09-11] MEDS: MAGNESIUM 1 GM/100 ML IVPB 100 ML IV SCH ×3 (06:18→08:23)
--- NOTE | 2021-09-11 06:25 | Progress Note - Surgery ---
Subjective Date Seen by a Provider: September 11, 2021 Time Seen by a Provider: 06:25 Subjective/Events-last exam Patient with minimal abdominal tenderness. Tolerating clears. No diarrhea overnight. No difficulty urinating. No new complaints. Denies any nausea vomiting fever sweats chills shortness of breath or chest pain. Objective Exam Vital Signs Date Time Temp Pulse Resp B/P (MAP) Pulse Ox O2 Delivery O2 Flow Rate FiO2 09/11/21 04:00 164/70 (101) 09/11/21 03:47 36.4 74 18 172/74 (106) 91 Room Air 09/11/21 00:14 36.7 75 18 174/74 (107) 92 Room Air 09/10/21 20:00 Room Air 09/10/21 19:24 36.6 73 18 134/66 (88) 91 Room Air 09/10/21 15:45 36.6 77 18 131/61 (84) 92 Room Air 09/10/21 11:27 36.1 76 18 126/61 (82) 90 Room Air 09/10/21 08:19 92 Room Air 09/10/21 08:01 37.3 96 20 120/56 (77) 92 Room Air I & O 09/11/21 07:00 Intake Total 2994 ml Output Total 2650 ml Balance 344 ml Capillary Refill : Less Than 3 Seconds General Appearance: No Apparent Distress, Obese HEENT: PERRL/EOMI, Pharynx Normal Neck: Normal Inspection, Supple Respiratory: Chest Non Tender, No Accessory Muscle Use, No Respiratory Distress Cardiovascular: Regular Rate, Rhythm, No Edema, No Murmur Peripheral Pulses: 2+ Radial Pulses (R), 2+ Radial Pulses (L) Gastrointestinal: soft, tenderness (diffusely but minimal) Extremity: Normal Inspection, Non Tender, No Pedal Edema Neurologic/Psychiatric: Alert, Oriented x3, No Motor/Sensory Deficits, Normal Mood/Affect Skin: Normal Color, Warm/Dry Lymphatic: No Adenopathy Results Lab Laboratory Tests 09/10/21 06:26: Sodium Level 139, Potassium Level 3.5L, Chloride Level 106, Carbon Dioxide Level 23, Anion Gap 10, Blood Urea Nitrogen 8, Creatinine 0.97, Estimat Glomerular Filtration Rate 62, BUN/Creatinine Ratio 8, Glucose Level 111H, Calcium Level 8.7, Magnesium Level 1.7 09/10/21 11:31: Glucometer 147H 09/10/21 15:11: Glucometer 188H 09/10/21 20:44: Glucometer 146H 09/11/21 05:43: White Blood Count 6.3, Red Blood Count 3.41L, Hemoglobin 10.4L, Hematocrit 33L, Mean Corpuscular Volume 96, Mean Corpuscular Hemoglobin 31, Mean Corpuscular Hemoglobin Concent 32, Red Cell Distribution Width 12.8, Platelet Count 234, Mean Platelet Volume 10.3, Immature Granulocyte % (Auto) 1, Neutrophils (%) (Auto) 60, Lymphocytes (%) (Auto) 25, Monocytes (%) (Auto) 11, Eosinophils (%) (Auto) 3, Basophils (%) (Auto) 1, Neutrophils # (Auto) 3.7, Lymphocytes # (Auto) 1.5, Monocytes # (Auto) 0.7, Eosinophils # (Auto) 0.2, Basophils # (Auto) 0.1, Immature Granulocyte # (Auto) 0.1, Sodium Level 140, Potassium Level 3.7, Chloride Level 109H, Carbon Dioxide Level 19L, Anion Gap 12, Blood Urea Nitrogen 6L, Creatinine 0.95, Estimat Glomerular Filtration Rate 63, BUN/Creatinine Ratio 6, Glucose Level 190H, Calcium Level 8.8, Magnesium Level 1.7 Microbiology 09/09/21 Urine Culture - Preliminary, Resulted Gram Negative Bacillus 1 Assessment/Plan Assessment/Plan Assessment/Plan pancolitis UTI colovesicular fistula diarrhea with some blood in stool diffuse abdominal pain abdominal pain improved and feeling much better there is some air in the bladder could be secondary to fistula patient denies any recent catheters patient would keep on clears and if pain resolved then slowly advance continue iv abx would recommend colonoscopy outpatient once pancolitis resolved. would also recommend possible cystoscopy have follow-up with urology as well would consider ct scan with rectal contrast once pancolitis resolved. ANNALEE OROPEZA DO September 11, 2021 06:25
[2021-09-11] MEDS: inSUlin ASPART (NovoLOG) 1 UNIT/0.01 ML (CHARGE PER UNIT) SC SCH ×4 (06:29→20:11)
[2021-09-11] MEDS: ISOSORBIDE MONONITRATE 30 MG (IMDUR) TAB PO SCH (08:00)
[2021-09-11] MEDS: lisINopril 20 MG (PRINIVIL) TABLET PO SCH (08:00)
[2021-09-11] MEDS: DULoxetine 30 MG (CYMBALTA) CAP PO SCH (08:01)
[2021-09-11] MEDS: GABAPENTIN 600 MG (NEURONTIN) TAB PO SCH ×2 (08:01→20:34)
[2021-09-11] MEDS ORDERED: amLODIPine 5 MG (NORVASC) TAB PO ONE (09:15)
[2021-09-11] MEDS ORDERED: lisINopril 20 MG (PRINIVIL) TABLET PO ONE (09:15)
[2021-09-11] MEDS ORDERED: LACTATED RINGERS 1,000 ML IV ONE (09:23)
[2021-09-11] MEDS ORDERED: hydrALAZINE (APESOLINE) 20 MG/ML VIAL IV PRN (09:30)
[2021-09-11] MEDS ORDERED: LACTATED RINGERS 1,000 ML IV SCH (09:30)
[2021-09-11] MEDS: cefTRIAXone 1 GM PRE-MIX 50 ML IV SCH (09:35)
[2021-09-11] MEDS: NS IV 1000 ML 1,000 ML IV SCH (11:31)
--- NOTE | 2021-09-11 11:49 | Progress Note - Hospitalist ---
Subjective HPI/CC On Admission Date Seen by Provider: September 11, 2021 Time Seen by Provider: 10:10 Kennedi Schneider is a 75 year old female with PMH HTN, T2DM, HLD, CAD, GERD, who presented with diarrhea. She has had diarrhea for the past week. She has had some blood in her stools. She said her stools are not completely watery and have some form. She has some abdominal pain. She denies nausea and vomiting. She denies fevers and chills. She has had decreased urine output. She denies dysuria. She denies chest pain and shortness of breath. She has not been on any antibiotics recently. She has never had symptoms like this before. Subjective/Events-last exam She is still having diarrhea. Her abdominal pain has improved. She denies nausea and vomiting. She denies fevers. Objective Exam Vital Signs Vital Signs Date Time Temp Pulse Resp B/P (MAP) Pulse Ox O2 Delivery O2 Flow Rate FiO2 09/11/21 11:41 36.1 70 18 145/65 (91) 95 Room Air Capillary Refill : Less Than 3 Seconds General Appearance: No Apparent Distress, Obese Respiratory: Lungs Clear, No Respiratory Distress Cardiovascular: Regular Rate, Rhythm, No Murmur Gastrointestinal: Normal Bowel Sounds, Non Tender, Soft Extremity: Normal Inspection, No Pedal Edema Neurologic/Psychiatric: Alert, Normal Mood/Affect Skin: Normal Color, Warm/Dry Results/Procedures Lab Laboratory Tests 09/11/21 05:43 Patient resulted labs reviewed. Imaging: Reviewed Imaging Report Assessment/Plan Assessment and Plan Assess & Plan/Chief Complaint Colitis UTI Orthostatic hypotension CT abdomen with pancolitis, possible bladder fistula Surgery following Urine culture with gram negative nicolás C diff indeterminate Continue Rocephin and Flagyl IV fluids T2DM Decreased dose Levemir Sliding scale insulin HTN Increase Amlodipine and Lisinopril Hydralazine as needed HLD CAD GERD Continue home meds DVT prophylaxis: Lovenox Diagnosis/Problems Diagnosis/Problems (1) Colitis Status: Acute (2) Orthostatic hypotension Status: Acute (3) UTI (urinary tract infection) Status: Acute Qualifiers: Urinary tract infection type: acute cystitis Hematuria presence: without hematuria Qualified Codes: N30.00 - Acute cystitis without hematuria (4) Dehydration Status: Acute (5) HTN (hypertension) Status: Chronic (6) T2DM (type 2 diabetes mellitus) Status: Chronic Qualifiers: Diabetes mellitus shelter insulin use: with intermediate project manager use Diabetes mellitus complication status: with neurologic complications Diabetes mellitus complication detail: with polyneuropathy Qualified Codes: E11.42 - Type 2 diabetes mellitus with diabetic polyneuropathy; 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
[2021-09-11] MEDS: ENOXAPARIN 40 MG/0.4 ML (LOVENOX) SYR SC SCH (17:34)
[2021-09-11] MEDS: MIRTAZAPINE 15 MG (REMERON) TAB PO SCH (20:35)
[2021-09-12] VITALS: BP 205/89
[2021-09-12] MEDS: NS IV 1000 ML 1,000 ML IV SCH ×3 (00:26→16:38)
[2021-09-12 01:12] VITALS: BP 179/76
[2021-09-12] MEDS: metroNIDAZOLE 500MG/100ML IVPB 100 ML IV SCH ×2 (02:01→11:30)
[2021-09-12 04:00] VITALS: BP 172/75
[2021-09-12 05:54] LABS: POTASSIUM 3.3 MMOL/L (3.6-5.0)
[2021-09-12 05:55] LABS: CALCIUM 9.2 MG/DL (8.5-10.1)
[2021-09-12 05:59] LABS: CREATININE SERUM 0.9 MG/DL (0.60-1.30)
[2021-09-12 06:01] LABS: MAGNESIUM 1.5 MG/DL (1.6-2.4)
[2021-09-12] MEDS: inSUlin ASPART (NovoLOG) 1 UNIT/0.01 ML (CHARGE PER UNIT) SC SCH ×2 (06:12→11:55)
[2021-09-12] MEDS: KCL 20 MEQ TAB (K-DUR) PO SCH (06:12)
[2021-09-12] MEDS: MAGNESIUM 1 GM/100 ML IVPB 100 ML IV SCH ×3 (06:13→09:28)
[2021-09-12] MEDS: POTASSIUM CL 10MEQ/50ML IVPB 50 ML IV SCH (06:13)
[2021-09-12] MEDS ORDERED: KCL 20 MEQ TAB (K-DUR) PO ONE ×2 (06:15→08:40)
[2021-09-12] MEDS ORDERED: MAGNESIUM 2 GM/50 ML IVPB 50 ML IV ONE (06:15)
[2021-09-12] MEDS: GABAPENTIN 600 MG (NEURONTIN) TAB PO SCH (08:32)
[2021-09-12 08:33] VITALS: BP 175/75
[2021-09-12] MEDS: DULoxetine 30 MG (CYMBALTA) CAP PO SCH (08:33)
[2021-09-12] MEDS: ISOSORBIDE MONONITRATE 30 MG (IMDUR) TAB PO SCH (08:33)
[2021-09-12] MEDS ORDERED: DIPH1TAB25 PO (08:52)
[2021-09-12] MEDS ORDERED: LINA5TAB PO (08:53)
[2021-09-12] MEDS ORDERED: DULO60CA59 PO (08:54)
[2021-09-12] MEDS ORDERED: RIME75TA PO (08:55)
[2021-09-12] MEDS ORDERED: RT-ALBUINH IH (08:56)
[2021-09-12] MEDS ORDERED: LIRA0.6P SC (08:58)
[2021-09-12] MEDS ORDERED: ESCI-2 PO (08:59)
[2021-09-12] MEDS ORDERED: amLODIPine 10 MG (NORVASC) TAB PO SCH (09:00)
[2021-09-12] MEDS ORDERED: lisINopril 40 MG (PRINIVIL) TABLET PO SCH (09:00)
[2021-09-12] MEDS ORDERED: CETI10TA17 PO (09:09)
[2021-09-12] MEDS ORDERED: POLY30DR6 OP (09:10)
[2021-09-12] MEDS ORDERED: NF-VITD400 PO (09:10)
--- NOTE | 2021-09-12 09:37 | CONSULTATION REPORT ---
DATE OF SERVICE: 09/12/2021 ATTENDING PHYSICIAN: Dr. Guzmán. SUMMARY: After reviewing the patient's records, interviewing her, and examining her, this is a 75-year-old white lady who was admitted with C. diff and treated. She had a CT scan of the abdomen and pelvis, which revealed some air in the bladder. No other abnormality in the bladder or the colon. She denies history of diverticulitis, cancer, trauma, surgery, radiation and chemotherapy. She denies pneumaturia and/or fecaluria. Denies any hematuria. Her UA and culture revealed E. coli. I reviewed her CT. She also denies recent catheterization or scopes. Her abdomen is soft, nontender. IMPRESSION: UTI, possible vesicocolonic fistula. PLAN: CT cystogram and manage accordingly. Thank you for letting me participate in the care of this patient. We will follow with you. CC: Dr. Guzmán - requested, unable to deliver. Job ID: [id number] DocumentID: [id number] Dictated Date: 09/12/2021 08:44:50 [employer] Ax Technical Architect Date: 09/12/2021 09:36:43 Dictated By: BLANQUITA LARSEN MD
--- NOTE | 2021-09-12 10:43 | Discharge Summary ---
Diagnosis/Chief Complaint Date of Admission September 09, 2021 at 17:38 Date of Discharge Discharge Date: September 12, 2021 Admission Diagnosis Colitis Primary Care Lupe Roman Admissions Officer Discharge Diagnosis (1) Colitis Status: Acute (2) Orthostatic hypotension Status: Acute (3) UTI (urinary tract infection) Status: Acute (4) Dehydration Status: Acute (5) HTN (hypertension) Status: Chronic (6) T2DM (type 2 diabetes mellitus) Status: Chronic (7) CAD (coronary artery disease) Status: Chronic (8) GERD (gastroesophageal reflux disease) Status: Chronic (9) HLD (hyperlipidemia) Status: Chronic (10) Obesity Status: Chronic Discharge Summary Discharge Physical Exam Allergies: Coded Allergies: No Known Drug Allergies (Unverified , 01/14/21) Vitals & I&Os Vital Signs Date Time Temp Pulse Resp B/P (MAP) Pulse Ox O2 Delivery O2 Flow Rate FiO2 09/12/21 12:01 36.5 65 19 150/70 (96) 94 Room Air Hospital Course Patient was admitted to the hospital due to diarrhea and was found to have C. difficile colitis. She also had a urinary tract infection which grew E. coli. She was treated with Rocephin and Flagyl while in the hospital and was switched to oral vancomycin upon discharge. She completed her antibiotics for her uri nary tract infection while in the hospital. There was question of air in the bladder and so urology was consulted and CT cystogram was done which revealed no intra or extraperitoneal leak or fistula. She is to follow-up as an outpatient with her primary care doctor and will need a colonoscopy in the next few weeks. Labs (last 24 hrs) Laboratory Tests 09/11/21 20:08: Glucometer 135H 09/12/21 05:43: Sodium Level 141, Potassium Level 3.3L, Chloride Level 105, Carbon Dioxide Level 24, Anion Gap 12, Blood Urea Nitrogen 7, Creatinine 0.90, Estimat Glomerular Filtration Rate 68, BUN/Creatinine Ratio 8, Glucose Level 159H, Calcium Level 9.2, Magnesium Level 1.5L 09/12/21 05:59: Glucometer 128H 09/12/21 11:39: Glucometer 140H Microbiology 09/11/21 C. difficile GDH Antigen & Toxins - Final, Complete 09/09/21 Urine Culture - Final, Complete Escherichia coli Patient resulted labs reviewed. Pending Labs Laboratory Tests 09/12/21 11:39: Glucometer 140 Imaging: Reviewed Imaging Report Discussion & Recommendations Discharge Planning: >30 minutes discharge planning Discharge Home Medications: Active Scripts Active Vancomycin HCl 125 Mg Capsule 125 Mg PO Q6H Lisinopril 40 Mg Tablet 40 Mg PO DAILY Amlodipine Besylate 10 Mg Tablet 10 Mg PO DAILY Reported Visine Dry Eye Relief (Polyethylene Glycol 400) 1 % Drops 1 Drop OP DAILY PRN Vitamin D3 (Vitamin D) 10 Mcg (400 Unit) Tablet 400 Mcg PO DAILY Cetirizine HCl 10 Mg Tablet 10 Mg PO DAILY PRN Escitalopram Oxalate 10 Mg Tablet 10 Mg PO DAILY Victoza 2-Sridhar (Liraglutide) 0.6 Mg/0.1 Ml (18 Mg/3 Ml) Pen.injctr 1.2 Mg SC HS Proair Hfa (Albuterol Sulfate) 1 Puff Puff 1 Puff IH Q4H PRN 1 PUFF = 90 MCG Nurtec Odt (Rimegepant Sulfate) 75 Mg Tab.rapdis 75 Mg PO DAILY PRN Duloxetine HCl 60 Mg Capsule.dr 60 Mg PO DAILY Tradjenta (Linagliptin) 5 Mg Tablet 5 Mg PO DAILY Diphenoxylate-Atrop 2.5-0.025 (Diphenoxylate HCl/Atropine) 2.5 Mg-0.025 Mg Tablet 1 Each PO Q4H PRN Pantoprazole Sodium 40 Mg Tablet.dr 40 Mg PO DAILY Nitroglycerin 0.4 Mg Tab.subl [address] one tablet under tongue every 5 mintues as needed for chest pain. max 3 tablets. Mirtazapine 45 Mg Tablet 45 Mg PO HS Metoprolol Succinate 25 Mg Tab.er.24h 25 Mg PO DAILY Meloxicam 15 Mg Tablet 15 Mg PO DAILY Lisinopril 20 Mg Tablet 20 Mg PO DAILY Levemir Flextouch (Insulin Detemir) 100 Unit/Ml (3 Ml) Insuln.pen 80 Units SC HS Isosorbide Mononitrate ER (Isosorbide Mononitrate) 30 Mg Tab.er.24h 30 Mg PO DAILY Neurontin (Gabapentin) 300 Mg Capsule 900 Mg PO BID TAKES 3 (300MG) CAPS Atorvastatin Calcium 20 Mg Tablet 20 Mg PO DAILY Aspirin 81 Mg Tab.chew 81 Mg PO DAILY Amlodipine Besylate 5 Mg Tablet 5 Mg PO DAILY Instructions to patient/family Please see electronic discharge instructions given to patient. 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
[2021-09-12] MEDS: cefTRIAXone 1 GM PRE-MIX 50 ML IV SCH (10:51)
[2021-09-12] MEDS ORDERED: AMLO-251 PO (11:22)
[2021-09-12] MEDS ORDERED: LISI40TA9 PO (11:22)
[2021-09-12] MEDS ORDERED: VANC125C5 PO (11:30)
[2021-09-12 12:01] VITALS: BP 150/70
--- NOTE | 2021-09-12 14:34 | Diagnostic Imaging Report ---
INDICATION: Pneumaturia. COMPARISON: The study is correlated with a nonenhanced CT abdomen/pelvis dated 09/09/2021. FINDINGS: The catheterized urinary bladder was instilled with contrast media. There is no intra or extraperitoneal bladder perforation. There is some air within the anti-dependent bladder lumen. No evidence for leak. No secondary opacification of any adjacent bowel loops. There is formed stool throughout the colon. The colonic fecal load is mildly increased. Diffuse colonic wall thickening, however, has improved in the interim. No abscess or perforation. No pneumatosis or free gas. The atherosclerotic aorta is nonaneurysmal. Where visualized, there is no pelvic ascites. IMPRESSION: 1. Improvements in features of colitis. Air within the bladder lumen persists; however, bladder distensibility is normal and there is no intra or extraperitoneal leak and no fistula is opacified. 2. No abscess or hemorrhage. Dictated by: Dictated on workstation # [id number]
--- NOTE | 2021-09-12 15:12 | Discharge Inst-Simple/Standard ---
Discharge Inst-Standard Patient Instructions/Follow Up Plan of Care/Instructions/FU: Please continue to take your medications as written. Please follow up with your primary care doctor to follow up this stay. Activity as Tolerated: Yes Discharge Diet: ADA Diet Return to The Hospital For: Abdominal pain, worsening diarrhea, fever, chest pain, shortness of breath, if you feel you are getting worse. KLEVER JOSEPH MD September 12, 2021 15:12
[2021-09-12 17:15] VITALS: BP 150/70
--- NOTE | 2021-09-12 21:43 | Progress Note - Surgery ---
Subjective Date Seen by a Provider: September 12, 2021 Time Seen by a Provider: 08:37 Subjective/Events-last exam Patient feeling significantly better today. Not having any abdominal pain. Tolerating diet. Going for CT cystogram today. Denies nausea vomiting fever sweats chills shortness of breath or chest pain. C. difficile positive. Objective Exam Vital Signs Date Time Temp Pulse Resp B/P (MAP) Pulse Ox O2 Delivery O2 Flow Rate FiO2 09/12/21 17:15 36.5 65 19 150/70 94 Room Air 09/12/21 12:01 36.5 65 19 150/70 (96) 94 Room Air 09/12/21 08:33 36.0 77 18 175/75 (108) 93 Room Air 09/12/21 08:00 Room Air 09/12/21 04:00 36.8 67 22 172/75 (107) 92 Room Air 09/12/21 01:12 179/76 (110) 09/12/21 00:00 36.6 89 20 205/89 (127) 94 Room Air I & O 09/12/21 07:00 Intake Total 5080 ml Output Total 3000 ml Balance 2080 ml Capillary Refill : Less Than 3 Seconds General Appearance: No Apparent Distress, Obese HEENT: PERRL/EOMI, Pharynx Normal Neck: Normal Inspection, Supple Respiratory: Lungs Clear, No Respiratory Distress Cardiovascular: Regular Rate, Rhythm, No Murmur Peripheral Pulses: 2+ Radial Pulses (R), 2+ Radial Pulses (L) Gastrointestinal: non tender, soft Extremity: Normal Inspection, No Pedal Edema Neurologic/Psychiatric: Alert, Oriented x3, Normal Mood/Affect Skin: Normal Color, Warm/Dry Lymphatic: No Adenopathy Results Lab Laboratory Tests 09/12/21 05:43: Sodium Level 141, Potassium Level 3.3L, Chloride Level 105, Carbon Dioxide Level 24, Anion Gap 12, Blood Urea Nitrogen 7, Creatinine 0.90, Estimat Glomerular Filtration Rate 68, BUN/Creatinine Ratio 8, Glucose Level 159H, Calcium Level 9.2, Magnesium Level 1.5L 09/12/21 05:59: Glucometer 128H 09/12/21 11:39: Glucometer 140H Microbiology 09/11/21 C. difficile GDH Antigen & Toxins - Final, Complete 09/09/21 Urine Culture - Final, Complete Escherichia coli Assessment/Plan Assessment/Plan Assessment/Plan pancolitisC. difficile UTI colovesicular fistula diarrhea with some blood in stool diffuse abdominal pain abdominal pain improved and feeling much better Going for CT cystogram today there is some air in the bladder could be secondary to fistula patient denies any recent catheters patient would keep on clears and if pain resolved then slowly advance continue antibiotics for C. difficile would recommend colonoscopy outpatient once pancolitis resolved. follow-up with urology as well ANNALEE OROPEZA DO September 12, 2021 21:43
== END 2021-09-12 17:15 | disposition home or self-care (01) | DRG 372 ==
LOC: EDUNIT# 12:44 → ER 12:46 → 4TH 17:38
PROVIDERS: ADMIT Internal Medicine; ATTEND Internal Medicine
DX: A04.72 Enterocolitis due to Clostridium difficile, not specified as recurrent (principal); N30.00 Acute cystitis without hematuria; E86.0 Dehydration; B96.20 Unspecified Escherichia coli [E. coli] as the cause of diseases classified elsewhere; I10 Essential (primary) hypertension; F32.A Depression, unspecified; F17.210 Nicotine dependence, cigarettes, uncomplicated; E11.42 Type 2 diabetes mellitus with diabetic polyneuropathy; E78.5 Hyperlipidemia, unspecified; I25.10 Atherosclerotic heart disease of native coronary artery without angina pectoris; K21.9 Gastro-esophageal reflux disease without esophagitis; E66.09 Other obesity due to excess calories; I95.1 Orthostatic hypotension; M54.9 Dorsalgia, unspecified; Z95.1 Presence of aortocoronary bypass graft; Z68.31 Body mass index [BMI] 31.0-31.9, adult; Z79.4 Long term (current) use of insulin; Z79.82 Long term (current) use of aspirin; Z79.899 Other long term (current) drug therapy; Z79.84 Long term (current) use of oral hypoglycemic drugs
CPT/HCPCS: 36415; 72192; 74176; 80048; 80053; 81000; 82947; 83690; 83735; 85025; 86141; 87015; 87045; 87046; 87077; 87088; 87186; 87324; 87449; 87493; 87899

== ENCOUNTER 2022-02-03 11:51 | Emergency (ER) | payer MEDICARE, MEDICAID ==
[~2022-02-03 11:51] MED LIST changes: +AMLO-250 PO; +AMLO-251 PO; +ASPI-999 PO; +ATOR20TA66 PO; -CATHETER FLUSH 10 ML SYR IV PRN; +CETI10TA17 PO; +DIPH1TAB25 PO; +DULO60CA59 PO; +ESCI-2 PO; +FURO40TA4 PO; +GABA300C PO; -HOLD METFORMIN - RECEIVED CONTRAST 20 ML VIAL IV SCH; +INSU100I29 SC; -IOHEXOL 350 MG/ML 100 ML (OMNIPAQUE 350) VIAL IV ONE; +ISOS30TA82 PO; +LINA5TAB PO; +LIRA0.6P SC; +LISI20TA26 PO; +LISI40TA9 PO; +MELO15TA39 PO; +METF-399 PO; +MIRT45TA75 PO; +MTP25TSR PO; +NF-VITD400 PO; +NITR0.4T42 SL; -NS 100 ML (IVPB) BAG IV ONE; +PANT40TA52 PO; +POLY30DR6 OP; +RIME75TA PO; +RT-ALBUINH IH; +VANC125C5 PO
[2022-02-03 11:57] VITALS: BP 137/67
--- NOTE | 2022-02-03 12:16 | ED GI ---
General Chief Complaint: - Reproductive Stated Complaint: UNABLE TO URINATE & CONSTIPATION Nursing Triage Note: PT ARRIVAL TO ER WITH DAUGHTER WITH COMPLAINT OF INABILITY HAVE BOWEL MOVEMENT SINCE SUNDAY OF LAST. PT IS ALSO HAVING DIFFICUTLY URINATING. PT HASN'T URINATED SINCE SUNDAY OF THIS WEEK. PT IS ALSO HAVE ABDOMINAL PAIN THAT STARTED THE SAME TIME. PT DID TRY LAXATIVES SUNDAY WITHOUT SUCCESS. History of Present Illness Date Seen by Provider: Feb 03, 2022 Time Seen by Provider: 12:10 Initial Comments 76 y/o female presents today with c/o constipation. Pt reports she has been on hydrocodone BID since having dental procedure and has been unable to have a BM, last BM was one week ago. She has been having lower abdominal pain/cramping for the past 3 days. Pain is intermittent, does not radiate. States she feels like there is stool in her rectum but she can't get it to come out. She also has had some episodes of urinary incontinence over the past 3 days. She denies fever, chills, chest pain, indigestion, nausea, vomiting, bloody stools, dysuria, hematuria. She denies h/o GI problems and states she has had normal colonoscopy within the past 10 years. Timing/Duration: 4-5 Days Severity/Quality: Cramping Location: Generalized Abdomen Radiation: No Radiation Activities at Onset: None Associated Symptoms: Denies Symptoms Allergies and Home Medications Allergies Coded Allergies: No Known Drug Allergies (Unverified , 01/14/21) Patient Home Medication List Home Medication List Reviewed: Yes Albuterol Sulfate (Proair Hfa) 1 Puff Puff, 1 PUFF IH Q4H PRN for SHORTNESS OF BREATH, (Reported) Entered as Reported by: PATRICIA FOSTER on 09/12/21 0856 Amlodipine Besylate (Amlodipine Besylate) 10 Mg Tablet, 10 MG PO DAILY Prescribed by: KLEVER JOSEPH on 09/12/21 1122 Aspirin (Aspirin) 81 Mg Tab.chew, 81 MG PO DAILY, (Reported) Entered as Reported by: YOUSIF BAUER on 09/10/21 0341 Atorvastatin Calcium (Atorvastatin Calcium) 20 Mg Tablet, 20 MG PO DAILY, (Reported) Entered as Reported by: YOUSIF BAUER on 09/10/21 0341 Cetirizine HCl (Cetirizine HCl) 10 Mg Tablet, 10 MG PO DAILY PRN for ALLERGIES, (Reported) Entered as Reported by: PATRICIA FOSTER on 09/12/21 0909 Diphenoxylate HCl/Atropine (Diphenoxylate-Atrop 2.5-0.025) 2.5 Mg-0.025 Mg Tablet, 1 EACH PO Q4H PRN for DIARRHEA, (Reported) Entered as Reported by: PATRICIA FOSTER on 09/12/21 0852 Duloxetine HCl (Duloxetine HCl) 60 Mg Capsule.dr, 60 MG PO DAILY, (Reported) Entered as Reported by: PATRICIA FOSTER on 09/12/21 0854 Escitalopram Oxalate (Escitalopram Oxalate) 10 Mg Tablet, 10 MG PO DAILY, (Reported) Entered as Reported by: PATRICIA FOSTER on 09/12/21 0859 Gabapentin (Neurontin) 300 Mg Capsule, 900 MG PO BID, (Reported) Entered as Reported by: YOUSIF BAUER on 09/10/21 034 Insulin Detemir (Levemir Flextouch) 100 Unit/Ml (3 Ml) Insuln.pen, 80 UNITS SC HS, (Reported) Entered as Reported by: YOUSIF BAUER on 09/10/21 034 Isosorbide Mononitrate (Isosorbide Mononitrate ER) 30 Mg Tab.er.24h, 30 MG PO DAILY, (Reported) Entered as Reported by: YOUSIF BAUER on 09/10/21 034 Linagliptin (Tradjenta) 5 Mg Tablet, 5 MG PO DAILY, (Reported) Entered as Reported by: PATRICIA FOSTER on 09/12/21 0853 Liraglutide (Victoza 2-Sridhar) 0.6 Mg/0.1 Ml (18 Mg/3 Ml) Pen.injctr, 1.2 MG SC HS, (Reported) Entered as Reported by: PATRICIA FOSTER on 09/12/21 0858 Lisinopril (Lisinopril) 40 Mg Tablet, 40 MG PO DAILY Prescribed by: KLEVER JOSEPH on 09/12/21 1122 Meloxicam (Meloxicam) 15 Mg Tablet, 15 MG PO DAILY, (Reported) Entered as Reported by: YOUSIF BAUER on 09/10/21 034 Metoprolol Succinate (Metoprolol Succinate) 25 Mg Tab.er.24h, 25 MG PO DAILY, (Reported) Entered as Reported by: YOUSIF BAUER on 09/10/21 034 Mirtazapine (Mirtazapine) 45 Mg Tablet, 45 MG PO HS, (Reported) Entered as Reported by: YOUSIF BAUER on 09/10/21 034 Nitroglycerin (Nitroglycerin) 0.4 Mg Tab.subl, 1 TAB SL for CHEST PAIN (ANGINA), (Reported) Entered as Reported by: YOUSIF BAUER on 09/10/21 034 Pantoprazole Sodium (Pantoprazole Sodium) 40 Mg Tablet.dr, 40 MG PO DAILY, (Reported) Entered as Reported by: YOUSIF BAUER on 09/10/21 034 Polyethylene Glycol 400 (Visine Dry Eye Relief) 1 % Drops, 1 DROP OP DAILY PRN for DRY EYES, (Reported) Entered as Reported by: PATRICIA FOSTER on 09/12/21 0910 Rimegepant Sulfate (Nurtec Odt) 75 Mg Tab.rapdis, 75 MG PO DAILY PRN for HEADACHE, (Reported) Entered as Reported by: PATRICIA FOSTER on 09/12/21 0855 Vancomycin HCl (Vancomycin HCl) 125 Mg Capsule, 125 MG PO Q6H Prescribed by: KLEVER JOSEPH on 09/12/21 1130 Vitamin D (Vitamin D3) 10 Mcg (400 Unit) Tablet, 400 MCG PO DAILY, (Reported) Entered as Reported by: PATRICIA FOSTER on 09/12/21 0910 Review of Systems Review of Systems Constitutional: no symptoms reported EENTM: No Symptoms Reported Respiratory: No Symptoms Reported Cardiovascular: No Symptoms Reported Gastrointestinal: Abdominal Pain; Denies Blood Streaked Stools; Constipated; Denies Nausea, Denies Poor Appetite, Denies Rectal Bleeding Genitourinary: Denies Burning, Denies Frequency, Denies Hematuria; Incontinence; Denies Pain, Denies Urgency Musculoskeletal: no symptoms reported Endocrine: No Symptoms Reported Past Nlotwib-[id number]-[id number] Hx Patient Social History Tobacco Use?: Yes Tobacco type used: Cigarettes Smoking Status: Current Everyday Smoker Use of E-Cig and/or Vaping dev: No Substance use?: No Alcohol Use?: Yes Alcohol type: Hard Liquor Alcohol Frequency: Once in a while Pt feels they are or have been: No Immunizations Up To Date Influenza Vaccine Up-to-Date: Yes; Up-to-Date COVID19 Vaccine Seating And Mobility Technologist: Hammad Past Medical History Surgeries: Yes Appendectomy, CABG, Gallbladder, Hysterectomy Cardiac: Yes Hypertension Genitourinary: No Musculoskeletal: Yes Chronic Back Pain Endocrine: Yes Diabetes, Insulin dep Psychosocial: Yes Depression Family Medical History No Pertinent Family Hx Physical Exam Vital Signs Vital Signs - First Documented 02/03/22 11:57 Temp 36.4 Pulse 85 Resp 16 B/P (MAP) 137/67 (90) Pulse Ox 94 O2 Delivery Room Air Capillary Refill : Less Than 3 Seconds Height/Weight/BMI Height: '" Weight: lbs. oz. kg; 31.34 BMI Method: General Appearance: WD/WN, no apparent distress Respiratory: chest non-tender, lungs clear Cardiovascular: normal peripheral pulses, regular rate, rhythm, no edema Gastrointestinal: normal bowel sounds; No distended, No guarding; tenderness Back: No no CVA tenderness Skin: normal color, warm/dry Progress/Results/Core Measures Results/Orders Lab Results Laboratory Tests Test 02/03/22 12:08 02/03/22 12:43 Range/Units White Blood Count 11.4 H 4.3-11.0 10^3/uL Red Blood Count 3.69 L 3.80-5.11 10^6/uL Hemoglobin 11.1 L 11.5-16.0 g/dL Hematocrit 34 L 35-52 % Mean Corpuscular Volume 93 80-99 fL Mean Corpuscular Hemoglobin 30 25-34 pg Mean Corpuscular Hemoglobin Concent 32 32-36 g/dL Red Cell Distribution Width 13.8 10.0-14.5 % Platelet Count 278 130-400 10^3/uL Mean Platelet Volume 10.5 9.0-12.2 fL Immature Granulocyte % (Auto) 1 % Neutrophils (%) (Auto) 74 42-75 % Lymphocytes (%) (Auto) 15 12-44 % Monocytes (%) (Auto) 8 0-12 % Eosinophils (%) (Auto) 2 0-10 % Basophils (%) (Auto) 1 0-10 % Neutrophils # (Auto) 8.4 H 1.8-7.8 10^3/uL Lymphocytes # (Auto) 1.7 1.0-4.0 10^3/uL Monocytes # (Auto) 0.9 0.0-1.0 10^3/uL Eosinophils # (Auto) 0.2 0.0-0.3 10^3/uL Basophils # (Auto) 0.1 0.0-0.1 10^3/uL Immature Granulocyte # (Auto) 0.1 0.0-0.1 10^3/uL Sodium Level 134 L 135-145 MMOL/L Potassium Level 4.6 3.6-5.0 MMOL/L Chloride Level 103 98-107 MMOL/L Carbon Dioxide Level 21 21-32 MMOL/L Anion Gap 10 5-14 MMOL/L Blood Urea Nitrogen 18 7-18 MG/DL Creatinine 1.30 0.60-1.30 MG/DL Estimat Glomerular Filtration Rate 43 BUN/Creatinine Ratio 14 Glucose Level 213 H 70-105 MG/DL Calcium Level 9.3 8.5-10.1 MG/DL Corrected Calcium 9.4 8.5-10.1 MG/DL Total Bilirubin 0.4 0.1-1.0 MG/DL Aspartate Amino Transf (AST/SGOT) 36 H 5-34 U/L Alanine Aminotransferase (ALT/SGPT) 50 0-55 U/L Alkaline Phosphatase 130 40-136 U/L Total Protein 7.8 6.4-8.2 GM/DL Albumin 3.9 3.2-4.5 GM/DL Urine Color YELLOW Urine Clarity SL CLOUDY Urine pH 5.5 5-9 Urine Specific [place] <=1.005 1.016-1.022 Urine Protein NEGATIVE NEGATIVE Urine Glucose (UA) 3+ H NEGATIVE Urine Ketones NEGATIVE NEGATIVE Urine Nitrite POSITIVE H NEGATIVE Urine Bilirubin NEGATIVE NEGATIVE Urine Urobilinogen 0.2 < = 1.0 MG/DL Urine Leukocyte Esterase 1+ H NEGATIVE Urine RBC (Auto) 1+ H NEGATIVE Urine RBC RARE /HPF Urine WBC >100 H /HPF Urine Squamous Epithelial Cells RARE /HPF Urine Crystals NONE /LPF Urine Bacteria MODERATE H /HPF Urine Casts NONE /LPF Urine Mucus NEGATIVE /LPF Urine Culture Indicated YES My Orders Orders - MARSHALL KUMARI PRODUCT SUPPORT ENGINEER Soap Suds Enema (02/03/22 12:13) Yanez Cath (02/03/22 12:34) Cbc With Automated Diff (02/03/22 12:34) Comprehensive Metabolic Panel (02/03/22 12:34) Urinalysis (02/03/22 12:34) Bladder Scan (02/03/22 12:45) Urine Culture (02/03/22 12:43) Vital Signs/I&O 02/03/22 11:57 Temp 36.4 Pulse 85 Resp 16 B/P (MAP) 137/67 (90) Pulse Ox 94 O2 Delivery Room Air Blood Pressure Mean: 90 Departure Impression Primary Impression: Urinary tract infection Additional Impression: Constipation due to pain medication Disposition: HOME, SELF-CARE Condition: Improved Departure-Patient Inst. Decision time for Depature: 13:18 Referrals: ROCKY FRENCH MD (PCP) Primary Care Physician JADE HAGEN APRN (Family) Primary Care Physician Patient Instructions: Constipation, Adult (DC), Urinary Tract Infection, Adult (DC) Add. Discharge Instructions: All discharge instructions reviewed with patient and/or family. Voiced understanding. Scripts Docusate Sodium (Docusate Sodium) 100 Mg Tablet 100 MG PO BID, #30 TAB Prov: MARSHALL KUMARI APRN 02/03/22 Cefdinir (Cefdinir) 300 Mg Capsule 300 MG PO BID, #14 CAP Prov: MARSHALL KUMARI APRN 02/03/22 MARSHALL KUMARI APRN Feb 03, 2022 12:15
[2022-02-03 12:51] LABS: BASOPHILS # (AUTO) 0.1 10^3/uL (0.0-0.1); BASOPHILS % (AUTO) 1 % (0-10); EOSINOPHILS # (AUTO) 0.2 10^3/uL (0.0-0.3); EOSINOPHILS % (AUTO) 2 % (0-10); HEMATOCRIT 34 % (35-52); HEMOGLOBIN 11.1 g/dL (11.5-16.0); LYMPHOCYTES # (AUTO) 1.7 10^3/uL (1.0-4.0); LYMPHOCYTES % (AUTO) 15 % (12-44); MEAN CORPUSCULAR HEMOGLOBIN 30 pg (25-34); MEAN CORPUSCULAR HGB CONC 32 g/dL (32-36); MEAN CORPUSCULAR VOLUME 93 fL (80-99); MEAN PLATELET VOLUME 10.5 fL (9.0-12.2); MONOCYTES # (AUTO) 0.9 10^3/uL (0.0-1.0); MONOCYTES % (AUTO) 8 % (0-12); NEUTROPHILS # (AUTO) 8.4 10^3/uL (1.8-7.8); NEUTROPHILS % (AUTO) 74 % (42-75); PLATELET COUNT 278 10^3/uL (130-400); WHITE BLOOD COUNT 11.4 10^3/uL (4.3-11.0)
[2022-02-03 13:01] LABS: BILIRUBIN,URINE NEGATIVE (NEGATIVE); CLARITY,URINE SL CLOUDY; COLOR,URINE YELLOW; GLUCOSE, URINE (UA) 3+ (NEGATIVE); KETONES,URINE NEGATIVE (NEGATIVE); LEUKOCYTE ESTERASE ,URINE 1+ (NEGATIVE); NITRITE,URINE POSITIVE (NEGATIVE); PH,URINE 5.5 (5-9); PROTEIN,URINE NEGATIVE (NEGATIVE)
[2022-02-03 13:04] LABS: ALBUMIN 3.9 GM/DL (3.2-4.5); POTASSIUM 4.6 MMOL/L (3.6-5.0)
[2022-02-03 13:06] LABS: CALCIUM 9.3 MG/DL (8.5-10.1)
[2022-02-03 13:07] LABS: TOTAL PROTEIN 7.8 GM/DL (6.4-8.2)
[2022-02-03 13:09] LABS: BILIRUBIN,TOTAL 0.4 MG/DL (0.1-1.0)
[2022-02-03 13:11] LABS: CREATININE SERUM 1.3 MG/DL (0.60-1.30)
[2022-02-03 13:12] LABS: BACTERIA,URINE MODERATE /HPF; RBC,URINE RARE /HPF; SQUAMOUS EPITHELIAL CELL,UR RARE /HPF; WBC,URINE >100 /HPF
[2022-02-03] MEDS ORDERED: CEFD300C3 PO (13:19)
[2022-02-03] MEDS ORDERED: DOCU100T2 PO (13:21)
== END 2022-02-03 13:42 | disposition home or self-care (01) ==
LOC: EDUNIT# 11:51 → ER 11:53
DX: N39.0 Urinary tract infection, site not specified (principal); T40.2X1A Poisoning by other opioids, accidental (unintentional), initial encounter; K59.03 Drug induced constipation; F17.210 Nicotine dependence, cigarettes, uncomplicated; Z90.49 Acquired absence of other specified parts of digestive tract; E11.9 Type 2 diabetes mellitus without complications; Z79.4 Long term (current) use of insulin
CPT/HCPCS: 36415; 51702; 80053; 81000; 85025; 87077; 87088; 87186

== ENCOUNTER 2022-02-24 11:16 | Emergency (ER) | payer MEDICARE, MEDICAID ==
[~2022-02-24 11:16] MED LIST changes: +ALBU8.5H6 IH; +CEFD300C3 PO; +DOCU100T2 PO; -RT-ALBUINH IH
[2022-02-24] MEDS ORDERED: ONDANSETRON 4 MG/2 ML (SDV) Z0FRAN IVP ONE (12:00)
[2022-02-24] MEDS ORDERED: LACTATED RINGERS 1,000 ML IV SCH (12:00)
--- NOTE | 2022-02-24 12:00 | ED General ---
General Chief Complaint: General Problems/Pain Stated Complaint: DIARRHEA/VOMITING Nursing Triage Note: PT AMB TO [facility] 10 WITH FAMILY MEMBER WITH C/O BODY ACHES, VOMITTING AND DIARRHEA THAT STARTED THIS MORNING. PT DENIES TAKING ANY MEDICATION TO HELP. PT TOOK HOME COVID TEST THAT WAS NEG Source of Information: Patient Exam Limitations: No Limitations History of Present Illness Date Seen by Provider: Feb 24, 2022 Time Seen by Provider: 11:59 Initial Comments To ER with 3-4 episodes of diarrhea onset this morning associated with nausea and vomiting and fatigue. She also has chills. Timing/Duration: 1-2 Days Severity: Moderate Associated Systoms: Denies Symptoms Allergies and Home Medications Allergies Coded Allergies: No Known Drug Allergies (Unverified , 01/14/21) Patient Home Medication List Home Medication List Reviewed: Yes Albuterol Sulfate (Proair Hfa) 1 Puff Puff, 1 PUFF IH Q4H PRN for SHORTNESS OF BREATH, (Reported) Entered as Reported by: PATRICIA FOSTER on 09/12/21 0856 Amlodipine Besylate (Amlodipine Besylate) 10 Mg Tablet, 10 MG PO DAILY Prescribed by: KLEVER JOSEPH on 09/12/21 1122 Aspirin (Aspirin) 81 Mg Tab.chew, 81 MG PO DAILY, (Reported) Entered as Reported by: YOUSIF BAUER on 09/10/21 0341 Atorvastatin Calcium (Atorvastatin Calcium) 20 Mg Tablet, 20 MG PO DAILY, (Rep orted) Entered as Reported by: YOUSIF BAUER on 09/10/21 0341 Cefdinir (Cefdinir) 300 Mg Capsule, 300 MG PO BID Prescribed by: Becky King on 02/03/22 1319 Cetirizine HCl (Cetirizine HCl) 10 Mg Tablet, 10 MG PO DAILY PRN for ALLERGIES, (Reported) Entered as Reported by: PATRICIA FOSTER on 09/12/21 0909 Diphenoxylate HCl/Atropine (Diphenoxylate-Atrop 2.5-0.025) 2.5 Mg-0.025 Mg Tablet, 1 EACH PO Q4H PRN for DIARRHEA, (Reported) Entered as Reported by: PATRICIA FOSTER on 09/12/21 0852 Docusate Sodium (Docusate Sodium) 100 Mg Tablet, 100 MG PO BID Prescribed by: Becky King on 02/03/22 1321 Duloxetine HCl (Duloxetine HCl) 60 Mg Capsule.dr, 60 MG PO DAILY, (Reported) Entered as Reported by: PATRICIA FOSTER on 09/12/21 0854 Escitalopram Oxalate (Escitalopram Oxalate) 10 Mg Tablet, 10 MG PO DAILY, (Repo rted) Entered as Reported by: PATRICIA FOSTER on 09/12/21 0859 Gabapentin (Neurontin) 300 Mg Capsule, 900 MG PO BID, (Reported) Entered as Reported by: YOUSIF BAUER on 09/10/21 034 Insulin Detemir (Levemir Flextouch) 100 Unit/Ml (3 Ml) Insuln.pen, 80 UNITS SC HS, (Reported) Entered as Reported by: YOUSIF BAUER on 09/10/21 034 Isosorbide Mononitrate (Isosorbide Mononitrate ER) 30 Mg Tab.er.24h, 30 MG PO DAILY, (Reported) Entered as Reported by: YOUSIF BAUER on 09/10/21 034 Linagliptin (Tradjenta) 5 Mg Tablet, 5 MG PO DAILY, (Reported) Entered as Reported by: PATRICIA FOSTER on 09/12/21 0853 Liraglutide (Victoza 2-Sridhar) 0.6 Mg/0.1 Ml (18 Mg/3 Ml) Pen.injctr, 1.2 MG SC HS, (Reported) Entered as Reported by: PATRICIA FOSTER on 09/12/21 0858 Lisinopril (Lisinopril) 40 Mg Tablet, 40 MG PO DAILY Prescribed by: KLEVER JOSEPH on 09/12/21 1122 Meloxicam (Meloxicam) 15 Mg Tablet, 15 MG PO DAILY, (Reported) Entered as Reported by: YOUSIF BAUER on 09/10/21 034 Metoprolol Succinate (Metoprolol Succinate) 25 Mg Tab.er.24h, 25 MG PO DAILY, (Reported) Entered as Reported by: YOUSIF BAUER on 09/10/21 034 Mirtazapine (Mirtazapine) 45 Mg Tablet, 45 MG PO HS, (Reported) Entered as Reported by: YOUSIF BAUER on 09/10/21 034 Nitroglycerin (Nitroglycerin) 0.4 Mg Tab.subl, 1 TAB SL for CHEST PAIN (ANGINA), (Reported) Entered as Reported by: YOUSFI BAUER on 09/10/21 0341 Ondansetron (Ondansetron Odt) 8 Mg Tab.rapdis, 8 MG SL Q4H PRN for NAUSEA/VOMITING Prescribed by: DOUG ROSA on 02/24/22 1300 Pantoprazole Sodium (Pantoprazole Sodium) 40 Mg Tablet.dr, 40 MG PO DAILY, (Reported) Entered as Reported by: YOUSIF BAUER on 09/10/21 0341 Polyethylene Glycol 400 (Visine Dry Eye Relief) 1 % Drops, 1 DROP OP DAILY PRN for DRY EYES, (Reported) Entered as Reported by: PATRICIA FOSTER on 09/12/21 0910 Rimegepant Sulfate (Nurtec Odt) 75 Mg Tab.rapdis, 75 MG PO DAILY PRN for HEADACHE, (Reported) Entered as Reported by: PATRICIA FOSTER on 09/12/21 0855 Vancomycin HCl (Vancomycin HCl) 125 Mg Capsule, 125 MG PO Q6H Prescribed by: KLEVER JOSEPH on 09/12/21 1130 Vitamin D (Vitamin D3) 10 Mcg (400 Unit) Tablet, 400 MCG PO DAILY, (Reported) Entered as Reported by: PATRICIA FOSTER on 09/12/21 0910 Review of Systems Review of Systems Constitutional: see HPI, chills EENTM: see HPI Respiratory: no symptoms reported Cardiovascular: no symptoms reported Gastrointestinal: abdominal pain, diarrhea, nausea Genitourinary: no symptoms reported Musculoskeletal: no symptoms reported Skin: no symptoms reported Psychiatric/Neurological: No Symptoms Reported Hematologic/Lymphatic: No Symptoms Reported Past Mbzymma-Qaksfs-Kflzdc Hx Patient Social History Tobacco Use?: Yes Tobacco type used: Cigarettes Smoking Status: Current Everyday Smoker Substance use?: No Alcohol Use?: Yes Alcohol Frequency: Rarely Pt feels they are or have been: No Immunizations Up To Date Influenza Vaccine Up-to-Date: Yes; Up-to-Date First/Initial COVID19 Vaccinat: 04/2021 Second COVID19 Vaccination Roberto: 04/2021 Past Medical History Surgery/Hospitalization HX: HTN, DM, HLD, NEUROPATHY Surgeries: Yes Appendectomy, CABG, Gallbladder, Hysterectomy Cardiac: Yes Hypertension Genitourinary: No Musculoskeletal: Yes Chronic Back Pain Endocrine: Yes Diabetes, Insulin dep Psychosocial: Yes Depression Family Medical History No Pertinent Family Hx Physical Exam Vital Signs Vital Signs - First Documented 02/24/22 11:35 Temp 36.4 Pulse 80 Resp 16 B/P (MAP) 115/58 (77) Capillary Refill : Height, Weight, BMI Height: '" Weight: lbs. oz. kg; 31.34 BMI Method: General Appearance: No Apparent Distress, WD/WN Eyes: Bilateral Eye Normal Inspection, Bilateral Eye PERRL HEENT: PERRL/EOMI, TMs Normal, Other (Dry mucous membranes) Neck: Full Range of Motion, Normal Inspection Respiratory: No Accessory Muscle Use, No Respiratory Distress, Other (Noted to have a cough but she states this is normal for her as she is a smoker.) Cardiovascular: Regular Rate, Rhythm, Normal Peripheral Pulses Gastrointestinal: Normal Bowel Sounds, Non Tender, Soft Extremity: Normal Capillary Refill, Normal Inspection Neurologic/Psychiatric: Alert, Oriented x3 Skin: Normal Color, Warm/Dry Progress/Results/Core Measures Suspected Sepsis SIRS Temperature: Pulse: 80 Respiratory Rate: 16 Laboratory Tests 02/24/22 12:05: White Blood Count 14.7H Blood Pressure 115 /58 Mean: 77 Laboratory Tests 02/24/22 12:05: Creatinine 1.53H, Platelet Count 259, Total Bilirubin 0.2 Results/Orders Lab Results Laboratory Tests Test 02/24/22 12:05 Range/Units White Blood Count 14.7 H 4.3-11.0 10^3/uL Red Blood Count 4.05 3.80-5.11 10^6/uL Hemoglobin 12.2 11.5-16.0 g/dL Hematocrit 38 35-52 % Mean Corpuscular Volume 93 80-99 fL Mean Corpuscular Hemoglobin 30 25-34 pg Mean Corpuscular Hemoglobin Concent 33 32-36 g/dL Red Cell Distribution Width 13.9 10.0-14.5 % Platelet Count 259 130-400 10^3/uL Mean Platelet Volume 10.1 9.0-12.2 fL Immature Granulocyte % (Auto) 1 % Neutrophils (%) (Auto) 83 H 42-75 % Lymphocytes (%) (Auto) 9 L 12-44 % Monocytes (%) (Auto) 6 0-12 % Eosinophils (%) (Auto) 1 0-10 % Basophils (%) (Auto) 1 0-10 % Neutrophils # (Auto) 12.2 H 1.8-7.8 10^3/uL Lymphocytes # (Auto) 1.3 1.0-4.0 10^3/uL Monocytes # (Auto) 0.8 0.0-1.0 10^3/uL Eosinophils # (Auto) 0.1 0.0-0.3 10^3/uL Basophils # (Auto) 0.1 0.0-0.1 10^3/uL Immature Granulocyte # (Auto) 0.2 H 0.0-0.1 10^3/uL Neutrophils % (Manual) 79 % Lymphocytes % (Manual) 14 % Monocytes % (Manual) 3 % Eosinophils % (Manual) 1 % Basophils % (Manual) 0 % Band Neutrophils 3 % Blood Morphology Comment NORMAL Urine Color YELLOW Urine Clarity CLEAR Urine pH 5.0 5-9 Urine Specific [place] >=1.030 1.016-1.022 Urine Protein NEGATIVE NEGATIVE Urine Glucose (UA) NEGATIVE NEGATIVE Urine Ketones NEGATIVE NEGATIVE Urine Nitrite NEGATIVE NEGATIVE Urine Bilirubin NEGATIVE NEGATIVE Urine Urobilinogen 0.2 < = 1.0 MG/DL Urine Leukocyte Esterase NEGATIVE NEGATIVE Urine RBC (Auto) NEGATIVE NEGATIVE Urine RBC NONE /HPF Urine WBC NONE /HPF Urine Squamous Epithelial Cells RARE /HPF Urine Crystals NONE /LPF Urine Bacteria NEGATIVE /HPF Urine Casts NONE /LPF Urine Mucus MODERATE H /LPF Urine Culture Indicated NO Sodium Level 135 135-145 MMOL/L Potassium Level 4.7 3.6-5.0 MMOL/L Chloride Level 103 98-107 MMOL/L Carbon Dioxide Level 21 21-32 MMOL/L Anion Gap 11 5-14 MMOL/L Blood Urea Nitrogen 28 H 7-18 MG/DL Creatinine 1.53 H 0.60-1.30 MG/DL Estimat Glomerular Filtration Rate 35 BUN/Creatinine Ratio 18 Glucose Level 249 H 70-105 MG/DL Calcium Level 9.6 8.5-10.1 MG/DL Corrected Calcium 9.8 8.5-10.1 MG/DL Total Bilirubin 0.2 0.1-1.0 MG/DL Aspartate Amino Transf (AST/SGOT) 34 5-34 U/L Alanine Aminotransferase (ALT/SGPT) 35 0-55 U/L Alkaline Phosphatase 109 40-136 U/L Total Protein 7.6 6.4-8.2 GM/DL Albumin 3.8 3.2-4.5 GM/DL Influenza Type A (RT-PCR) Not Detected Not Detecte Influenza Type B (RT-PCR) Not Detected Not Detecte SARS-CoV-2 RNA (RT-PCR) Not Detected Not Detecte My Orders Orders - DOUG ROSA APRN Covid 19 Inhouse Test (02/24/22 11:43) Influenza A And B By Pcr (02/24/22 11:43) Cbc With Automated Diff (02/24/22 11:52) Comprehensive Metabolic Panel (02/24/22 11:52) Ua Culture If Indicated (02/24/22 11:52) Ondansetron Injection (Zofran Injectio (02/24/22 12:00) Lactated Ringers (Lr 1000 Ml Iv Solution (02/24/22 12:00) Ed Iv/Invasive Line Start (02/24/22 11:52) Manual Differential (02/24/22 12:05) Medications Given in ED Current Medications Medications Dose Ordered Sig/Willie Route Start Time Stop Time Status Last Admin Dose Admin Ondansetron HCl 4 mg ONCE ONCE IVP 02/24/22 12:00 02/24/22 12:01 DC 02/24/22 12:12 4 MG Vital Signs/I&O 02/24/22 11:35 Temp 36.4 Pulse 80 Resp 16 B/P (MAP) 115/58 (77) Capillary Refill : Blood Pressure Mean: 77 Departure Impression Primary Impression: Dehydration Additional Impression: Gastroenteritis Disposition: 01 HOME, SELF-CARE Condition: Critical Departure-Patient Inst. Decision time for Depature: 12:59 Referrals: ROCKY FRENCH MD (PCP) Primary Care Physician JADE HAGEN APRN (Family) Primary Care Physician Patient Instructions: Diarrhea, Adult ED Add. Discharge Instructions: 1. Increase fluid intake. Return to ER for any concerns. Follow-up with your doctor next week. All discharge instructions reviewed with patient and/or family. Voiced understanding. Scripts Ondansetron (Ondansetron Odt) 8 Mg Tab.rapdis 8 MG SL Q4H PRN for NAUSEA/VOMITING, #10 TAB Prov: DOUG ROSA APRN 02/24/22 DOUG ROSA APRN Feb 24, 2022 12:00
[2022-02-24 12:26] LABS: BASOPHILS # (AUTO) 0.1 10^3/uL (0.0-0.1); BASOPHILS % (AUTO) 1 % (0-10); BILIRUBIN,URINE NEGATIVE (NEGATIVE); CLARITY,URINE CLEAR; COLOR,URINE YELLOW; EOSINOPHILS # (AUTO) 0.1 10^3/uL (0.0-0.3); EOSINOPHILS % (AUTO) 1 % (0-10); GLUCOSE, URINE (UA) NEGATIVE (NEGATIVE); HEMATOCRIT 38 % (35-52); HEMOGLOBIN 12.2 g/dL (11.5-16.0); KETONES,URINE NEGATIVE (NEGATIVE); LEUKOCYTE ESTERASE ,URINE NEGATIVE (NEGATIVE); LYMPHOCYTES # (AUTO) 1.3 10^3/uL (1.0-4.0); LYMPHOCYTES % (AUTO) 9 % (12-44); MEAN CORPUSCULAR HEMOGLOBIN 30 pg (25-34); MEAN CORPUSCULAR HGB CONC 33 g/dL (32-36); MEAN CORPUSCULAR VOLUME 93 fL (80-99); MEAN PLATELET VOLUME 10.1 fL (9.0-12.2); MONOCYTES # (AUTO) 0.8 10^3/uL (0.0-1.0); MONOCYTES % (AUTO) 6 % (0-12); NEUTROPHILS # (AUTO) 12.2 10^3/uL (1.8-7.8); NEUTROPHILS % (AUTO) 83 % (42-75); NITRITE,URINE NEGATIVE (NEGATIVE); PLATELET COUNT 259 10^3/uL (130-400); PROTEIN,URINE NEGATIVE (NEGATIVE); WHITE BLOOD COUNT 14.7 10^3/uL (4.3-11.0)
[2022-02-24 12:32] LABS: BACTERIA,URINE NEGATIVE /HPF
[2022-02-24 12:33] LABS: ALBUMIN 3.8 GM/DL (3.2-4.5); POTASSIUM 4.7 MMOL/L (3.6-5.0); SQUAMOUS EPITHELIAL CELL,UR RARE /HPF
[2022-02-24 12:35] LABS: CALCIUM 9.6 MG/DL (8.5-10.1)
[2022-02-24 12:36] LABS: TOTAL PROTEIN 7.6 GM/DL (6.4-8.2)
[2022-02-24 12:38] LABS: BILIRUBIN,TOTAL 0.2 MG/DL (0.1-1.0)
[2022-02-24 12:39] LABS: CREATININE SERUM 1.53 MG/DL (0.60-1.30)
[2022-02-24 12:53] LABS: BAND NEUTROPHILS 3 %; BASOPHILS % (MANUAL) 0 %; EOSINOPHILS % (MANUAL) 1 %; LYMPHOCYTES % (MANUAL) 14 %; MONOCYTES % (MANUAL) 3 %; NEUTROPHILS % (MANUAL) 79 %; RBC MORPH NORMAL
[2022-02-24] MEDS ORDERED: ONDA8TAB13 SL (13:00)
[2022-02-24 13:39] VITALS: BP 117/61
== END 2022-02-24 13:41 | disposition home or self-care (01) ==
LOC: EDUNIT# 11:16 → ER 11:18
DX: K52.9 Noninfective gastroenteritis and colitis, unspecified (principal); E86.0 Dehydration; E11.40 Type 2 diabetes mellitus with diabetic neuropathy, unspecified; F17.210 Nicotine dependence, cigarettes, uncomplicated; Z90.49 Acquired absence of other specified parts of digestive tract; Z20.822 Contact with and (suspected) exposure to COVID-19; Z79.4 Long term (current) use of insulin
CPT/HCPCS: 36415; 80053; 81000; 85007; 85027; 87636

== ENCOUNTER 2022-05-02 23:16 | Emergency (ER) | payer MEDICARE, MEDICAID ==
[~2022-05-02] VITALS: Ht 167 cm; Wt 87.0 kg
[~2022-05-02 23:16] MED LIST changes: +ONDA8TAB13 SL
--- NOTE | 2022-05-03 | ED GU-Female ---
General Chief Complaint: - Reproductive Stated Complaint: KIDNEY PAIN Nursing Triage Note: Patient presented to the ER tonight with complaints of lower left and right sided back pain and she is concerned that it is her kidneys. She denies painful urination and states her last bowel movement was yesterday. Source: patient Exam Limitations: no limitations (OWEN NUÑEZ) History of Present Illness Date Seen by Provider: May 02, 2022 Time Seen by Provider: 23:55 Initial Comments 76 F presents to the ED with 2 day hx of worsening BL flank pain. Pain is worse on the right than the left as described as a shooting sharp pain rated 10/10. Pt calims pain is worse with rotation, standing/sitting. and walking. Pt was diaphoretic earlier today due to pain. Pain is relieved when sitting upright and not moving. Pt has not taken any pain medications today. Denies any pain or burning sensation with urination, has not noticed any changes in her urine, and reports no discharge. Reports no fever, chest pain, SOB, diarrhea, numbness or tingling . Last bowel movement was yesterday and reported as normal. Timing/Duration: yesterday, getting worse Severity/Quality: sharp, stabbing Location: right flank, left flank Radiation: back Activities at Onset: none Sexual [place] History: not active Modifying Factors: Improves With Movement, Improves With Palpation Associated Symptoms: No abdominal pain; diaphoresis; No loss of bladder control, No polyuria (OWEN NUÑEZ) Allergies and Home Medications Allergies Coded Allergies: No Known Drug Allergies (Unverified , 01/14/21) Patient Home Medication List Home Medication List Reviewed: Yes (OWEN NUÑEZ) Albuterol Sulfate (Ventolin Hfa) 1 Puff Puff, 1 PUFF IH Q4H PRN for SHORTNESS OF BREATH, (Reported) Entered as Reported by: PATRICIA FOSTER on 09/12/21 0856 Amlodipine Besylate (Amlodipine Besylate) 10 Mg Tablet, 10 MG PO DAILY Prescribed by: KLEVER JOSEPH on 09/12/21 1122 Aspirin (Aspirin) 81 Mg Tab.chew, 81 MG PO DAILY, (Reported) Entered as Reported by: YOUSIF BAUER on 09/10/21 0341 Atorvastatin Calcium (Atorvastatin Calcium) 20 Mg Tablet, 20 MG PO DAILY, (Reported) Entered as Reported by: YOUSIF BAUER on 09/10/21 034 Cefdinir (Cefdinir) 300 Mg Capsule, 300 MG PO BID Prescribed by: Becky King on 02/03/22 1319 Cetirizine HCl (Cetirizine HCl) 10 Mg Tablet, 10 MG PO DAILY PRN for ALLERGIES, (Reported) Entered as Reported by: PATRICIA FOSTER on 09/12/21 0909 Diphenoxylate HCl/Atropine (Diphenoxylate-Atrop 2.5-0.025) 2.5 Mg-0.025 Mg Tablet, 1 EACH PO Q4H PRN for DIARRHEA, (Reported) Entered as Reported by: PATRICIA FOSTER on 09/12/21 0852 Docusate Sodium (Docusate Sodium) 100 Mg Tablet, 100 MG PO BID Prescribed by: Becky King on 02/03/22 1321 Duloxetine HCl (Duloxetine HCl) 60 Mg Capsule.dr, 60 MG PO DAILY, (Reported) Entered as Reported by: PATRICIA FOSTER on 09/12/21 0854 Escitalopram Oxalate (Escitalopram Oxalate) 10 Mg Tablet, 10 MG PO DAILY, (Reported) Entered as Reported by: PATRICIA FOSTER on 09/12/21 0859 Gabapentin (Neurontin) 300 Mg Capsule, 900 MG PO BID, (Reported) Entered as Reported by: YOUSIF BAUER on 09/10/21 034 Insulin Detemir (Levemir Flextouch) 100 Unit/Ml (3 Ml) Insuln.pen, 80 UNITS SC HS, (Reported) Entered as Reported by: YOUSIF BAUER on 09/10/21 034 Isosorbide Mononitrate (Isosorbide Mononitrate ER) 30 Mg Tab.er.24h, 30 MG PO DAILY, (Reported) Entered as Reported by: YOUSIF BAUER on 09/10/21 034 Linagliptin (Tradjenta) 5 Mg Tablet, 5 MG PO DAILY, (Reported) Entered as Reported by: PATRICIA FOSTER on 09/12/21 0853 Liraglutide (Victoza 2-Sridhar) 0.6 Mg/0.1 Ml (18 Mg/3 Ml) Pen.injctr, 1.2 MG SC HS, (Reported) Entered as Reported by: PATRICIA FOSTER on 09/12/21 0858 Lisinopril (Lisinopril) 40 Mg Tablet, 40 MG PO DAILY Prescribed by: KLEVER JOSEPH on 09/12/21 1122 Meloxicam (Meloxicam) 15 Mg Tablet, 15 MG PO DAILY, (Reported) Entered as Reported by: YOUSIF BAUER on 09/10/21340 Metoprolol Succinate (Metoprolol Succinate) 25 Mg Tab.er.24h, 25 MG PO DAILY, (Reported) Entered as Reported by: YOUSIF BAUER on 09/10/21340 Mirtazapine (Mirtazapine) 45 Mg Tablet, 45 MG PO HS, (Reported) Entered as Reported by: YOUSIF BAUER on 09/10/21340 Nitroglycerin (Nitroglycerin) 0.4 Mg Tab.subl, 1 TAB SL for CHEST PAIN (ANGINA), (Reported) Entered as Reported by: YOUSIF BAUER on 09/10/21340 Ondansetron (Ondansetron Odt) 8 Mg Tab.rapdis, 8 MG SL Q4H PRN for NAUSEA/VOMITING Prescribed by: DOUG ROSA on 02/24/22 1300 Pantoprazole Sodium (Pantoprazole Sodium) 40 Mg Tablet.dr, 40 MG PO DAILY, (Reported) Entered as Reported by: YOUSIF BAUER on 09/10/21340 Polyethylene Glycol 400 (Visine Dry Eye Relief) 1 % Drops, 1 DROP OP DAILY PRN for DRY EYES, (Reported) Entered as Reported by: PATRICIA FOSTER on 09/12/21 0910 Rimegepant Sulfate (Nurtec Odt) 75 Mg Tab.rapdis, 75 MG PO DAILY PRN for HEADACH E, (Reported) Entered as Reported by: PATRICIA FOSTER on 09/12/21 0855 Vancomycin HCl (Vancomycin HCl) 125 Mg Capsule, 125 MG PO Q6H Prescribed by: KLEVER JOSEPH on 09/12/21 1130 Vitamin D (Vitamin D3) 10 Mcg (400 Unit) Tablet, 400 MCG PO DAILY, (Reported) Entered as Reported by: PATRICIA FOSTER on 09/12/21 0910 Review of Systems Review of Systems Constitutional: chills, diaphoresis EENTM: no symptoms reported Respiratory: No cough, No short of breath Cardiovascular: No chest pain, No palpitations Gastrointestinal: No diarrhea, No nausea, No vomiting Genitourinary: denies burning, denies discharge, denies dysuria, denies frequency; flank pain; denies hematuria Musculoskeletal: back pain (lower thoracic and superior lumbar region BL ) Skin: lesions (on posterior back and neck ) Psychiatric/Neurological: Headache; Denies Numbness, Denies Paresthesia Endocrine: No Symptoms Reported Hematologic/Lymphatic: No Symptoms Reported (SAUCE,OWEN) Past Flfndiq-Wpvmch-Igtxqs Hx Patient Social History Tobacco Use?: Yes Tobacco type used: Cigarettes Smoking Status: Current Everyday Smoker Substance use?: No Alcohol Use?: No (SAUCE,OWEN) Immunizations Up To Date Influenza Vaccine Up-to-Date: Yes; Up-to-Date First/Initial COVID19 Vaccinat: 04/2021 Second COVID19 Vaccination Roberto: 04/2021 Third COVID19 Vaccination Date: YES (SAUCE,OWEN) Past Medical History Surgery/Hospitalization HX: HTN, DM, HLD, NEUROPATHY Surgeries: Yes Appendectomy, CABG, Gallbladder, Hysterectomy Cardiac: Yes Hypertension Genitourinary: No Musculoskeletal: Yes Chronic Back Pain Endocrine: Yes Diabetes, Insulin dep Psychosocial: Yes Depression (SAUCE,OWEN) Family Medical History No Pertinent Family Hx (SAUCE,OWEN) Physical Exam Vital Signs Vital Signs - First Documented 05/02/22 23:38 Temp 36.4 Pulse 80 Resp 16 B/P (MAP) 143/115 (124) Pulse Ox 97 O2 Delivery Room Air (YG KINCAID MD) Vital Signs Capillary Refill : Less Than 3 Seconds (SAUCE,OWEN) Height, Weight, BMI Height: '" Weight: lbs. oz. kg; 31.00 BMI Method: General Appearance: WD/WN, no apparent distress HEENT: PERRL/EOMI Neck: non-tender, supple, normal inspection Cardiovascular: regular rate, rhythm, no edema, no murmur Respiratory: chest non-tender, lungs clear, normal breath sounds, no respiratory distress, no accessory muscle use Gastrointestinal: normal bowel sounds, non tender, soft, no organomegaly, no pulsatile mass Back: normal inspection, no CVA tenderness, other (BL paraspinal tenderness from t12-l2) Extremities: non-tender, no pedal edema, no calf tenderness, normal capillary refill Neurologic/Psychiatric: alert, normal mood/affect, oriented x 3 Skin: normal color, warm/dry Lymphatic: no adenopathy Tenderness to light palpation of paravertebral muscles BL from T12-L2 (OWEN NUÑEZ) Progress/Results/Core Measures Suspected Sepsis SIRS Temperature: Pulse: 80 Respiratory Rate: 16 Blood Pressure 143 /115 Mean: 124 (OWEN NUÑEZ) Results/Orders My Orders Orders - YG KINCAID MD Lidocaine 4% Patch (Salonpas 4% Patch) (05/03/22 00:11) Tramadol Tablet (Ultram Tablet) (05/03/22 00:15) Rx-Tramadol Hcl (Rx-Ultram) (05/03/22 00:12) (YG KINCAID MD) Vital Signs/I&O 05/02/22 23:38 Temp 36.4 Pulse 80 Resp 16 B/P (MAP) 143/115 (124) Pulse Ox 97 O2 Delivery Room Air (YG KINCAID MD) Vital Signs/I&O Capillary Refill : Less Than 3 Seconds (OWEN NUÑEZ) Blood Pressure Mean: 124 Progress Note : Time: 00:15 Progress Note Patient seen and examined by me. I have reviewed and agree with the medical student's documentation. 76yo with progressive bilateral paraspinous muscle pain. Onset 2 days ago. SHe has used a heating pad without relief. No medications. Bending, standing, twisting and turning make it hurt worse. She denies any trauma, falls, injury/lifting heavy objects. No fever, chills, cough, shortness of breath. No urinary complaints. No n/v/d. She does not have tylenol or ibuprofen at home. Exam: pertinent for tenderness to palpation right paraspinous musculature greater than left at about T12-L2. no overlying rashes. no swelling. No midline point tenderness; neg Jatin's punch bilat. No calf swelling or tenderness; normal ROM Bilat LE without sensory deficit. Assessment: Low back pain Plan: lidocaine patches and tramadol, f/u with PCP (YG KINCAID MD) Departure Impression Primary Impression: Low back pain Qualified Codes: M54.50 - Low back pain, unspecified Disposition: 01 HOME, SELF-CARE Condition: Stable Departure-Patient Inst. Decision time for Depature: 00:19 (YG KINCAID MD) Referrals: ROCKY FRENCH MD (PCP) Primary Care Physician JADE HAGEN APRN (Family) Primary Care Physician Patient Instructions: Low Back Pain ED Add. Discharge Instructions: Use over the counter Lidocaine Patches as directed on the packaging. You can take over the counter Tylenol Extra Strength 2 tablets every 6 hours for pain. If you have any worsening pain, especially with fever, nausea, vomiting, rash or other emergent, concerning symptoms - please return to the Emergency Department for re-evaluation. Verification and Attestation of Medical Student E/M Service A medical student performed and documented this service in my presence. I reviewed and verified all information documented by the medical student and made modifications to such information, when appropriate. I personally performed the physical exam and medical decision making. Yg Kincaid, May 03, 2022,00:23 (YG KINCAID MD) Copy Copies To 1: ROCKY FRENCH MD, DAULTON May 02, 2022 23:59 YG KINCAID MD May 03, 2022 00:23
[2022-05-03] MEDS ORDERED: LIDOCAINE 4% (SALONPAS) PATCH TOP STA (00:11)
[2022-05-03 01:11] VITALS: BP 136/92
== END 2022-05-03 01:11 | disposition home or self-care (01) ==
LOC: EDUNIT# 23:16 → ER 23:19
DX: M54.50 Low back pain, unspecified (principal); F17.210 Nicotine dependence, cigarettes, uncomplicated
CPT/HCPCS: 99283

== ENCOUNTER 2022-06-07 05:54 | Outpatient (CLI) | payer MEDICARE, MEDICAID ==
[~2022-06-07] VITALS: Ht 170.2 cm; Wt 88.5 kg
[2022-06-12] MEDS ORDERED: EMPA10TA PO (11:31)
[2022-06-12] MEDS ORDERED: BUDE10.7 IH (11:31)
[2022-06-12] MEDS ORDERED: SEMA0.25 SQ (11:31)
== END 2022-06-12 11:41 | disposition home or self-care (01) ==
LOC: PREOP 05:54
PROVIDERS: ATTEND Internal Medicine
DX: Z01.818 Encounter for other preprocedural examination (principal)

== ENCOUNTER 2022-06-16 08:14 | Day surgery (SDC) | payer MEDICAID, MEDICARE, OTHER ==
--- NOTE | 2022-06-05 16:36 | HISTORY AND PHYSICAL ---
COLONOSCOPY HISTORY AND PHYSICAL HISTORY OF PRESENT ILLNESS: The patient is a 76-year-old white female who has had intermittent left lower quadrant abdominal pain and episodes of bloody diarrhea since August of last year. She had a CT scan at that time that revealed moderate pancolonic wall thickening with pericolonic stranding and edema consistent with colitis. She had multiple diverticulum present, but the diffuse nature of this disease acute diverticulitis was not the most likely cause. She also had some pneumatosis of the bladder. She denies any symptoms that sound like pneumaturia. Colonoscopy had been strongly recommended in August. She did not wish to proceed with the procedure at that time. She had another episode last month of abdominal pain, diarrhea without bleeding. She denies chills or fever. 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 She also has history of coronary artery disease, status post bypass surgery, she believes in 2013, has been on aspirin since, but no report of heart problems since that time. She had a previous colonoscopy over 5 years ago. Does not believe that she had neoplasia at that time. She is not aware of any family history of colon cancer. PHYSICAL EXAMINATION: GENERAL: Reveals a pleasant white female who appeared to be in no acute distress. Weight is 195 pounds, was down 4 pounds from her last office weight 2 months ago. VITAL SIGNS: Blood pressure 142/64. HEENT: Unremarkable. Sclerae nonicteric. CHEST: Clear to auscultation. CARDIOVASCULAR: Reveals a regular rate and rhythm without significant murmur, S3 or S4. ABDOMEN: Soft, supple without mass, organomegaly, or tenderness. EXTREMITIES: Reveal no cyanosis, clubbing or edema. PLAN: For further investigation of the above-mentioned abnormal CT findings and intermittent bloody diarrhea, the patient is being set up for colonoscopy. Prep instructions with split dose of colyte were given with instructions to take Zofran an hour before each dose. Prep instructions were given. Medical records from my nurse practitioner were reviewed as well as her electronic medical record from the hospital and CT scan. Job ID: [id number] DocumentID: [id number] Dictated Date: 05/29/2022 14:16:13 Conservation Or Heritage Architect Date: 05/29/2022 14:58:00 Dictated By: ROCKY FRENCH MD [facility]
[~2022-06-16] VITALS: Ht 170 cm; Wt 88.5 kg
[~2022-06-16 08:14] MED LIST changes: +BUDE10.7 IH; +EMPA10TA PO; +SEMA0.25 SQ
[2022-06-16] MEDS ORDERED: LACTATED RINGERS 1,000 ML IV STA (08:21)
[2022-06-16 08:35] VITALS: BP 134/71
[2022-06-16] MEDS ORDERED: PROPOFOL INJECTION 50 ML IV ONE (09:10)
[2022-06-16] MEDS ORDERED: MIDAZOLAM 2 MG/2 ML (VERSED) VIAL ONE (09:10)
--- NOTE | 2022-06-16 09:11 | Pre-Op Note & Conscious Sedat ---
Pre-Operative Progress Note Date H&P Reviewed: Jun 16, 2022 Time H&P Reviewed: 09:09 History & Physical: H&P Reviewed, Patient Examed, No changes noted Pre-Op Diagnosis: LLQ abd pain with abnormal Colon on CT with Fe defficiency anemia Conscious Sedation Pre-Proced ASA Score 3 For ASA 3 and 4: Consider anesthesia and medical clearance. Also, for patients with a history of failed moderate sedation consider anesthesia. Airway Lungs Heart ASA score ASA 1: a normal healthy patient ASA 2: a patient with a mild systemic disease (mid diabetes, controlled hypertension, obesity ASA 3: a patient with a severe systemic disease that limits activity (angina, COPD, prior Myocardial infarction) ASA 4: a patient with an incapacitating disease that is a constant threat to life (CHF, renal failure) ASA 5: a moribund patient not expected to survive 24 hrs. (ruptured aneurysm) ASA 6: a declared brain- patient whose organs are being harvested. For emergent operations, add the letter E after the classification Mallampati Classification Grade 2 Sedation Plan Analgesia, Amnesia, Plan communicated to team members, Discussed options with patient/fam, Discussed risks with patient/fam The patient is an appropriate candidate to undergo the planned procedure, sedation, and anesthesia. The patient immediately re-assessed prior to indication. ROCKY FRENCH MD Jun 16, 2022 09:11
[2022-06-16 10:05] VITALS: BP 82/44
--- NOTE | 2022-06-16 10:08 | Progress Note-Post Operative ---
Post-Procedure Note Physician (s)/Mill Platform Supervisor (s) Physician ROCKY FRENCH MD Pre-Procedure Diagnosis Pre-Procedure Diagnosis: LLQ abd pain with abnormal Colon on CT with Fe deffic iency anemia Post-Procedure Diagnosis Post-operative diagnosis: Prior to undergoing colonoscopy digital rectal evaluation was performed. Anal suture tone was normal and the perianal reflexes intact. No abnormalities noted on digital inspection of the anal canal or distal rectal vault. The colonoscope was then inserted into the rectum and under direct physician advanced the cecum. The cecum was identified by identification of the ileocecal valve and cecal strap. Photographic documentation was obtained. A careful inspection was made as the colonoscope withdrawn. Quality the prep was fair. Findings: There are no evidence for internal or external hemorrhoids and the rectum was unremarkable. Considering history of diarrhea the patient underwent biopsy for evaluation for microscopic colitis of the rectum. Moderate diverticular disease confined to the sigmoid colon was present without evidence for acute diverticulitis. There was one area of scarring in the mid sigmoid colon with some adjacent diverticulum but no evidence for inflammatory change was noted. Photograph was obtained. The descending colon splenic flexure transverse colon hepatic flexure ascending colon and cecum were unremarkable with no evidence for neoplasia. A/P 1. Moderate diverticular disease confined to the sigmoid colon is presents without evidence for acute diverticulitis. No visible evidence for inflammation was noted. A biopsy was obtained from the rectum to evaluate for microscopic colitis. No evidence for neoplasia was identified. Considering age and medical comorbidity would not advocate future screening colonoscopy. ROCKY FRENCH MD Jun 16, 2022 10:08
[2022-06-16 10:10] VITALS: BP 94/53
[2022-06-16 10:15] VITALS: BP 119/56
[2022-06-16 10:35] VITALS: BP 130/60
--- NOTE | 2022-06-16 14:04 | Anesthesia-General Post-Op ---
MAC Patient Condition Mental Status/LOC: Same as Preop Cardiovascular: Satisfactory Nausea/Vomiting: Absent Respiratory: Satisfactory Pain: Controlled Complications: Absent Post Op Complications Complications None Follow Up Care/Instructions Patient Instructions None needed. Anesthesiology Discharge Order Discharge Order Patient is doing well, no complaints, stable vital signs, no apparent adverse anesthesia problems. No complications reported per nursing. DORA CUNNINGHAM CRNA Jun 16, 2022 14:04
== END 2022-06-16 10:51 | disposition home or self-care (01) ==
LOC: ENDO 08:14
PROVIDERS: ATTEND Internal Medicine
DX: K57.30 Diverticulosis of large intestine without perforation or abscess without bleeding (principal); D50.9 Iron deficiency anemia, unspecified; R19.7 Diarrhea, unspecified; R93.3 Abnormal findings on diagnostic imaging of other parts of digestive tract; E11.9 Type 2 diabetes mellitus without complications; F17.210 Nicotine dependence, cigarettes, uncomplicated
CPT/HCPCS: 82947; 88305